=== PATIENT | female | born 1960 | race Caucasian/White ===

== ENCOUNTER → 2021-01-02 09:57 | Outpatient (BNVA) | payer OTHER, SELFPAY | PROVIDERS: Family Provider Internal Medicine; PCP Internal Medicine; Visit Provider Internal Medicine Cardiovascular Disease | DX: E78.5 Hyperlipidemia, unspecified (principal); I25.10 Atherosclerotic heart disease of native coronary artery without angina pectoris | CPT/HCPCS: 80053; 80061; 83721; 85025 ==

== ENCOUNTER → 2021-07-03 10:03 | Outpatient (BNVA) | payer OTHER, SELFPAY | PROVIDERS: Family Provider Internal Medicine; PCP Internal Medicine; Visit Provider Internal Medicine Cardiovascular Disease | DX: E78.5 Hyperlipidemia, unspecified (principal); I25.10 Atherosclerotic heart disease of native coronary artery without angina pectoris; I25.5 Ischemic cardiomyopathy; I10 Essential (primary) hypertension; M06.9 Rheumatoid arthritis, unspecified | CPT/HCPCS: 36415; 80061; 80076 ==

== ENCOUNTER 2023-07-05 12:21 | Inpatient (IN) | payer SELFPAY ==
[2023-07-05] VITALS (9 sets, daily range): BP systolic 91–142; BP diastolic 51–93; PULSE 89–122; RESP 16–19; TEMP 36.4–38.5; O2SAT 93–97; BMI 21.4
--- NOTE | 2023-07-05 12:35 | ECG_ITS ---
[facility] Test Date: 2023-07-05 Pat Name: Rossy Cervantes Department: Room: Gender: Female Bill Peddler: : 1960 Requested By: Damon Davis Order Number: [id number] Rendon MD: Panchito Cespedes M.D. Measurements Intervals [place] Rate: 99 P: 52 MO: 135 QRS: 40 QRSD: 86 T: 69 QT: 349 QTc: 448 Interpretive Statements SINUS RHYTHM Compared to ECG 07/18/2017 04:45:37 Ventricular premature complex(es) no longer present Myocardial infarct finding no longer present Electronically Signed On 07-05-2023 13:19:57 CDT by Panchito Cespedes M.D. [email or web address] Caregreenwood lefl[facility] hospitalPharmAkea Therapeuticsbucyrus community [email or web address].[email or web address]/OM/[id number]
--- NOTE | 2023-07-05 12:35 | XR_ITS ---
WS: [id number] Exam: XR chest 1V portable [id number] Date/Time of Exam: 07/05/2023 12:52 PM Reason For Exam: weakness Comparison 07/15/2017. The lungs are clear and fully expanded. Normal cardiomediastinal silhouette and regional bony element s. IMPRESSION: 1. Negative chest.
--- NOTE | 2023-07-05 12:53 | CT_ITS ---
WS: [id number] CT HEAD TECHNIQUE: Noncontrast CT of the head obtained from the skullbase to the vertex. CLINICAL INFORMATION: weakness COMPARISON: None. DLP: 1007.[address] scans at [facility] use at least one of these dose optimization techniques: automated e xposure control; mA and/or kV adjustment per patient size (includes targeted exams where dose is matc hed to clinical indication); or iterative reconstruction. FINDINGS: No evidence of intracranial hemorrhage or mass effect. Ventricular system and basal cisterns are johnson nt. Minimal small vessel changes with mild parenchymal volume loss. No extra-axial fluid collections. No evidence of mass or mass effect. Small retention cyst RIGHT maxillary sinus. Mucosal thickening RIGHT mastoid tip. . Normal visualized soft tissues. Vascular calcification. IMPRESSION: 1. No evidence of intracranial hemorrhage or mass effect. 2. No acute intracranial findings.
--- NOTE | 2023-07-05 13:00 | ED_ITS ---
HPI - Weakness 2 General: Chief complaint: Weakness Stated complaint: Diarrhea, weakness Time Seen by Provider: 07/05/23 12:35 Source: patient Mode of arrival: ambulatory Limitations: no limitations History of Present Illness: 63-year-old female came up with son narcisa gotti that she has been increasingly weak and having some confusion over the last 3 to 4 days. He states she has not been eating she has had diarrhea. He states that she had called him during the day and thought it was nighttime here she answers most of my questions but does get confused at times and takes a long time to answer some questions. She denies any fever pain does admit she does feel weak and has had diarrhea. Associated symptoms: Reports confusion; Denies chest pain, chills, dysuria, fever(s), headache(s), nausea or vomiting Review of Systems 2 Const: Reports: change in appetite, fatigue and malaise; Denies: fever(s), chills or body aches Eyes: Denies: eye discomfort ENMT: Denies: throat pain or dental pain Card: Denies: chest pain Resp: Denies: dyspnea GI: Reports: diarrhea; Denies: abdominal pain, nausea or vomiting : Denies: dysuria Musc: Denies: neck pain or back pain Skin/Breast: Denies: rash Neuro: Reports: confusion; Denies: headache(s) PFSH ED 2 PFSH: Medical History (Updated 07/05/23 @ 15:10 by Damon Davis MD) HTN (hypertension) Dyslipidemia GERD (gastroesophageal reflux disease) Rheumatoid arthritis Ischemic cardiomyopathy CAD (coronary artery disease) Surgical History S/P tonsillectomy S/P cholecystectomy Social History Smoking and tobacco/nicotine status: current every day tobacco/nicotine user cigarettes Alcohol intake: never Substance/Drug Use: never Physical Exam 2 Const: COMMON NORMALS: no acute distress, patient oriented x3 and healthy appearing HENMT: COMMON NORMALS: normocephalic and atraumatic HEAD & SCALP: n ormocephalic and atraumatic Eye: COMMON NORMALS: Equal, round and reactive pupils present PUPIL: Yes Equal, round and reactive pupils present Neck/C-Spine: COMMON NORMALS: full ROM and supple Chest: COMMONS NORMALS: normal inspection of the chest Resp: COMMON NORMALS: normal respiratory effort, No retractions, No use of accessory muscles and clear to auscultation bilaterally AUSCULTATION: clear to auscultation bilaterally Cardio: COMMON NORMALS: regular rate, regular rhythm and No murmurs present (Cardio) RATE: regular rate RHYTHM: regular rhythm GI: COMMON NORMALS: Normal to inspection, nondistended, normoactive bowel sounds present, Soft to palpation, non-tender and no masses PALPATION: Yes Soft to palpation Extremity: COMMON NORMALS: normal to inspection and full ROM Neuro: COMMON NORMALS: patient oriented x3, moves all extremities and no focal motor deficits Psych: COMMON NORMALS: mental status grossly normal, Normal thought process present and cooperative THOUGHT PROCESS: Normal thought process present Skin: COMMON NORMALS: no rashes or lesions noted and no wounds GENERAL SKIN EXAM: no rashes or lesions noted Course 2 Vital Signs: Vital signs: Vital Signs Temperature 97.7 F 07/05/23 12:27 Pulse Rate 89 07/05/23 15:21 Respiratory Rate 16 07/05/23 15:21 Blood Pressure 117/93 07/05/23 15:21 Pulse Oximetry 93 07/05/23 15:21 Oxygen Delivery Me thod Room Air 07/05/23 15:21 MDM - Weakness Medical Decision Making Presents here with some confusion she also had some vomiting she is hyperglycemic here hyponatremia as well did give her 1 L fluids some insulin she is not in DKA spoke to possible admit for observation. Medical Records I reviewed the patient's medical records. Lab Data I reviewed the patient's lab results. 07/05/23 13:27 07/05/23 13:27 Laboratory Results WBC 3.82 10^3/uL (3.29-11.43) 07/05/23 13: RBC 4.37 10^6/uL (3.85-5.65) 07/05/23 13:27 Hgb 12.80 g/dL (11.27-16.99) 07/05/23 13:27 Hct 37.5 % (36-47) 07/05/23 13:27 MCV 85.8 fl (85-98) 07/05/23 13: MCH 29.3 pg (27-33) 07/05/23 13:27 MCHC 34.1 g/dL (30-55) 07/05/23 13:27 RDW 12.6 % (12.1-15.1) 07/05/23 13:27 Plt Count 92 10^3/cmm (157-399) L 07/05/23 13:27 MPV 11.2 fL (7.4-10.4) H 07/05/23 13:27 Lymph % (Auto) Not Reportable 07/05/23 13:27 [place] % (Auto) Not Reportable 07/05/23 13:27 Lymph # (Auto) Not Reportable 07/05/23 13:27 [place] # (Auto) Not Reportable 07/05/23 13:27 Total Counted 100 (0-100) 07/05/23 13:27 Atypical Lymphs % 0.0 % (0-5) 07/05/23 13:27 Absolute Neutrophils 3.1 10^3/cmm (1.4-6.5) 07/05/23 13:27 Segmented Neutrophils 76 % 07/05/23 13:27 Abs Segm Neuts (Man) 2.9 10/cmm (1.6-7.1) 07/05/23 13: Band Neutrophils 6.0 % 07/05/23 13:27 Abs Band Neuts (Man) 0.2 10^3/cmm (0.0-1.2) 07/05/23 13: Absolute Lymphocytes 0.3 10^3/cmm (1.2-3.4) L 07/05/23 13:27 Lymphocytes (Manual) 8 % 07/05/23 13:27 Monocytes (Manual) 5.0 % 07/05/23 13:27 Absolute Monocytes 0.2 10^3/cmm (0.1-0.6) 07/05/23 13:27 Eosinophils (Manual) 0 % 07/05/23 13: Absolute Eosinophils 0.0 10^3/cmm (0.0-0.7) 07/05/23 13:27 Basophils (Manual) 0.0 % 07/05/23 13: Absolute Basophils 0.0 10^3/cmm (0.0-0.2) 07/05/23 13:27 Metamyelocytes 2.0 % 07/05/23 13:27 Myelocytes 2.0 % 07/05/23 13:27 Platelet Estimate Decreased (Normal) L 07/05/23 13:27 Sodium 125 mmol/L (136-145) L 07/05/23 13:27 Potassium 3.4 mmol/L (3.5-5.1) L 07/05/23 13:27 Chloride 91 mmol/L (98-107) L 07/05/23 13:27 Carbon Dioxide 20 mmol/L (22-29) L 07/05/23 13:27 Anion Gap 17.4 (5-19) 07/05/23 13:27 BUN 21 mg/dL (8-23) 07/05/23 13:27 Creatinine 0.8 mg/dL (0.5-0.9) 07/05/23 13:27 GFR Calculation 72.4 mL/min (90-130) L 07/05/23 13:27 Glucose 478 mg/dL (65-115) H 07/05/23 13:27 POC Glucose 444 mg/dL (70-110) H 07/05/23 14:48 Calculated Osmolality 284 mOsm/kg (285-295) L 07/05/23 13:27 Lactic Acid 1.5 mmol/L (0.5-2.2) 07/05/23 13:27 Calcium 8.1 mg/dL (8.5-10.5) L 07/05/23 13:27 Total Bilirubin 1.1 mg/dL (0.15-1.2) 07/05/23 13:27 AST 256 U/L (0-32) H 07/05/23 13:27 ALT 98 U/L (0-33) H 07/05/23 13:27 Alkaline Phosphatase 361 U/L (35-105) H 07/05/23 13:27 Total Protein 5.8 g/dL (6.6-8.7) L 07/05/23 13:27 Albumin 2.9 g/dL (3.5-5.2) L 07/05/23 13:27 Globulin 2.9 g/dL (1.3-4.6) 07/05/23 13:27 Lipase 82 U/L (13-60) H 07/05/23 13:27 Urine Color Yellow (Yellow) 07/05/23 13:24 Urine Appearance Clear (CLEAR) 07/05/23 13:24 Urine pH 7 (5-7) 07/05/23 13:24 Ur Specific [place] 1.005 (1.005-1.030) 07/05/23 13:24 Urine Protein 1+ (Negative) H 07/05/23 13:24 Urine Glucose (UA) 4+ (Normal) H 07/05/23 13:24 Urine Ketones 1+ (Negative) H 07/05/23 13:24 Urine Blood 3+ (Negative) H 07/05/23 13:24 Urine Nitrate Negative (Negative) 07/05/23 13:24 Urine Bilirubin 1+ (Negative) H 07/05/23 13:24 Urine Urobilinogen 4 mg/dL (Negative) H 07/05/23 13:24 Ur Leukocyte Esterase Negative (Negative) 07/05/23 13:24 Urine RBC 0-4 /hpf (0-2) H 07/05/23 13:24 Urine WBC Rare /hpf (0-5) 07/05/23 13:24 Ur Squamous Epith Cells 10-15 /hpf (0-5) H 07/05/23 13:24 Amorphous Sediment 1+ /hpf 07/05/23 13:24 Urine Bacteria Trace /hpf (NONE) 07/05/23 13:24 Urine Mucus Trace /hpf 07/05/23 13:24 Urine Yeast Trace /hpf 07/05/23 13:24 All radiology interpretation(s) finalized by discharge EKG Data EKG 1: I personally reviewed and interpreted this EKG as follows: EKG interpretation date: 07/05/23 EKG interpretation time: 12:58 Interpretation: nsr hr [address] or t wave abnormalities qrs 86 qtc 405 Discharge Plan Discharge Patient Disposition: Placed in Observation Admit Provider: Chandler Lama Clinical Impression: Hyperglycemia, Altered mental status, Vomiting Coding Level of Care Code ED Service Crew Leader for Chg Char
[2023-07-05] MEDS: sodium chloride 0.9% 1,000 ML 999 ML IV ×2 (13:24→14:13)
[2023-07-05 13:39] LABS: Hematocrit 37.5 % (36-47); Mean Corpuscular HGB Conc 34.1 g/dL (30-55); Mean Corpuscular Hemoglobin 29.3 pg (27-33); Mean Corpuscular Volume 85.8 fl (85-98); Mean Platelet Volume 11.2 fL (7.4-10.4); Platelet Count 92 10^3/cmm (157-399); Red Blood Count 4.37 10^6/uL (3.85-5.65); Red Cell Distribution Width 12.6 % (12.1-15.1); White Blood Count 3.82 10^3/uL (3.29-11.43)
[2023-07-05 13:53] LABS: Lactic Sepsis W/Reflex 1.5 mmol/L (0.5-2.2)
[2023-07-05 13:54] LABS: Alanine Aminotransferase 98 U/L (0-33); Albumin Level 2.9 g/dL (3.5-5.2); Alkaline Phosphatase 361 U/L (35-105); Anion Gap 17.4 (5-19); Aspartate Amino Transferase 256 U/L (0-32); Blood Urea Nitrogen 21 mg/dL (8-23); Calcium 8.1 mg/dL (8.5-10.5); Carbon Dioxide 20 mmol/L (22-29); Chloride 91 mmol/L (98-107); Creatinine Clr Calc Pharmacy 62.0325; Globulin 2.9 g/dL (1.3-4.6); Glomerular Filtration Rate 72.4 mL/min (90-130); Glucose 478 mg/dL (65-115); Lipase 82 U/L (13-60); Osmolality Calculated 284 mOsm/kg (285-295); Potassium 3.4 mmol/L (3.5-5.1); Sodium 125 mmol/L (136-145); Total Bilirubin 1.1 mg/dL (0.15-1.2); Total Protein 5.8 g/dL (6.6-8.7)
[2023-07-05 13:55] LABS: Absolute Segmented Neutrophil 2.9 10/cmm (1.6-7.1); Band Neutrophils Absolute 0.2 10^3/cmm (0.0-1.2); Eosinophils 0 %; Lymphocytes 8 %; Lymphocytes Absolute 0.3 10^3/cmm (1.2-3.4); Monocytes Absolute 0.2 10^3/cmm (0.1-0.6); Segmented Neutrophils 76 %; Slide Review Slide Review Perform; Total Cells Counted 100 (0-100)
[2023-07-05 13:56] LABS: Absolute Neutrophil 3.1 10^3/cmm (1.4-6.5); Platelet Estimate Decreased (Normal)
[2023-07-05 14:14] LABS: Add Urine Microscopic? YES; Bilirubin Urine 1+ (Negative); Blood Urine 3+ (Negative); Glucose Urine UA 4+ (Normal); Ketones Urine 1+ (Negative); Leukocyte Esterase Urine Negative (Negative); Nitrate Urine Negative (Negative); Protein Urine 1+ (Negative); RBC Urine 0-4 /hpf (0-2); Specific Gravity, Urine 1.005 (1.005-1.030); Urine Appearance Clear (CLEAR); Urine Color Yellow (Yellow); Urobilinogen Urine 4 mg/dL (Negative); WBC Urine RARE /hpf (0-5); pH Urine 7 (5-7)
[2023-07-05 14:15] LABS: Add Urine Culture? No; Amorphous Sediment Urine 1+ /hpf; Bacteria Urine TRACE /hpf; Mucus Urine TRACE /hpf
[2023-07-05] MEDS: insulin regular-human 100 units/1 mL 8 UNIT IVP ×2 (14:17→15:05)
[2023-07-05 14:50] LABS: Glucose Point of Care 444 mg/dL (70-110)
--- NOTE | 2023-07-05 15:51 | P.HP_ITS ---
Providers/Chief Complaint 2 Admitting Physician: Chandler Lama DO Primary Care Provider: Joey Hsieh DO Chief Complaint: Diarrhea, weakness History of Present Illness Rossy Cervantes is a 63 year old female w/ PMH of CAD, CA, dyslipidemia, GERD, HTN, who presented to ER with altered mental status. History was obtained through review of ER documentation and patient interview. Patient states that for the last 4 days she has been having diarrhea, and feeling weak. She was unable to eat much due to nausea. She says that she continued to decline over the next few days. She spoke with her son who had encouraged her to come to the ER. Upon presenting, she was noted to be very confused, unable to correctly distinguish the date or season. She initially reported having abdominal pain, but at the time of my exam, she reports that it had resolved. She denies fever, chills, body aches, emesis or urinary symptoms. In the ER, initial workup showed thrombocytopenia with platelets at 92, and lymphocyte count to 0.3. She is unable to relate if this is new for her. Sodium was low at 125, corrected to 131 when glucose taken into account. Her sugars were elevated to 478. She denies previous Dx of diabetes. Potassium slightly low, at 3.4. LFT's were elevated with AST: 256, ALT: 98, Alk Phos: 367. Albumin low at 2.9. Lipase was mildly elevated to 82. CXR was negative for acute cardiopulmonary conditions, and head CT was normal. EKG showed sinus rhythm. She was tachycardic to 110's range, with stable BP. UA showed 3+ blood and high glucose. She did receive fluid bolus x 2 in the ER. She was admitted to [facility] for further workup. Review of Systems 2 General: Reports: 10 or more systems reviewed and unremarkable except in HPI and below Medications/Allergies Home Medications Medication Instructions Recorded Confirmed Last Taken Type clopidogrel 75 mg tablet 75 mg PO DAILY #90 tabs 10/29/22 07/05/23 07/03/23 Rx duloxetine 30 mg capsule,delayed See Rx Instructions .Route .COMPLEX 10/29/22 07/05/23 07/03/23 History release lisinopril 10 mg tablet 10 mg PO DAILY #90 tabs 10/29/22 07/05/23 07/03/23 Rx nitroglycerin 0.4 mg sublingual 0.4 mg sublingual Q5M PRN chest 10/29/22 07/05/23 Unknown Rx tablet pain #25 tabs atorvastatin 80 mg tablet 80 mg PO DAILY #90 tabs 03/08/23 07/05/23 07/03/23 Rx pantoprazole 40 mg tablet,delayed 40 mg PO DAILY #90 tabs 03/16/23 07/05/23 07/03/23 Rx release aspirin 81 mg tablet,delayed 81 mg PO DAILY 07/05/23 07/05/23 07/03/23 History release prednisone 5 mg tablet See Rx Instructions .Route .COMPLEX 07/05/23 07/05/23 07/03/23 History Allergies Allergy/AdvReac Type Severity Reaction Status Date / Time No Known Allergies Allergy Verified 01/02/21 09:07 PFSH Acute 2 PFSH: Medical History (Updated 07/05/23 @ 19:29 by Chandler Lama DO) HTN (hypertension) Dyslipidemia GERD (gastroesophageal reflux disease) Rheumatoid arthritis Ischemic cardiomyopathy CAD (coronary artery disease) Surgical History S/P tonsillectomy S/P cholecystectomy Social History Smoking and tobacco/nicotine status: current every day tobacco/nicotine user cigarettes Alcohol intake: never Substance/Drug Use: never Vitals/I&O/Wt Last Vital Signs Temp 97.7 F 07/05/23 12:27 Pulse 89 07/05/23 15:21 Resp 16 07/05/23 15:21 BP 117/93 07/05/23 15:21 Pulse Ox 93 07/05/23 15:21 O2 Del Method Room Air 07/05/23 15:21 Weight last 48 hrs Weight 120 lb Physical Exam 2 Narrative: General: Cooperative patient in no apparent distress. Oriented to person and place, not time. HEENT: Normocephalic, Atraumatic. External ears normal. Nasal passages patent without drainage. MMM. Heart: Mildly tachycardic. No rubs, gallops or murmurs appreciated. Resp: LCTA. No respiratory distress, no use of accessory muscles. Abd: Soft, non-tender. Non-distended. Bowel sounds present and normal. Extremities: No edema. Skin: No rash or lesions on exposed areas. Neuro: No focal motor or sensory loss. Data 07/05/23 13:27 07/05/23 13:27 A&P Assessment and plan (1) Altered mental status: Qualifiers: Altered mental status type: disorientation Qualified Code(s): R41.0 - Disorientation, unspecified (2) Elevated LFTs: (3) Elevated lipase: (4) Hyperglycemia: (5) Dyslipidemia: (6) Ischemic cardiomyopathy: (7) CAD (coronary artery disease): Qualifiers: Coronary Disease-Associated Artery/Lesion type: [place] artery [place] vs. transplanted heart: [place] heart Associated angina: without angina Qualified Code(s): I25.10 - Atherosclerotic heart disease of [place] coronary artery without angina pectoris (8) GERD (gastroesophageal reflux disease): (9) Acute diarrhea: (10) Tick bite: (11) Hypokalemia: (12) Hyponatremia: Plan Rossy Cervantes is a 63 year old female w/ PMH of CAD, CA, dyslipidemia, GERD, HTN, who presented to ER with altered mental status. Admit to [facility] for evaluation. LFT's, Lipase elevated. Platelets low to 98, which appears new for her. Lymphopenia. Glucose elevated to 478. Na corrected to 131. K+ mildly low to 3.4. Denies previous history of TIIDM, though she did have elevated sugars on previous visits. On further questioning, she endorses recent tick bite, few weeks ago, check tick panel. Will order RUQ US to evaluate given LFT's, Elevated lipase. May have clear fluids for now. Will advance diet as tolerated. Start IVF's. Replace K and recheck in am. Mild hyponatremia when corrected. Treat with IVF's. Check A1c, Lipid panel, TSH, Mag, Phos and repeat CBC, CMP in a.m. Will obtain blood cultures. Toxicology screen negative. Can consider Stool studies if etiology is undetermined. SCD's for VTE PPx due to thrombocytopenia. Hold on GI PPx until RUQ obtained. Accuchecks, SSI to manage hyperglycemia. Will hold plavix and statin for now. May restart if labs improve. Will resume home medications for chronic conditions as status improves. Code Status: Full IVF: NS at 100. DVT PPx: SCD's. GI PPx: None ABx: None Diet: Clear liquids. Discharge plan: TBD. Attestations 2 Medical Necessity Statement*: Admitted for hospitalization due to altered mental status, transaminitis, elevated lipase, acute abdominal pain, and treatment of acute hyponatremia, hypokalemia, hyperglycemia, thrombocytopenia. Hospitalization will likely cross 2 midnights. Coding Level of Care Code Acute Code for Chg Fwd High MDM includes number and complexity of problems actively addressed during encounter, amount and/or complexity of data reviewed/ordered and described risk of complication, morbidity or mortality of management as documented Diagnoses Disorientation R41.0 Altered mental status type: disorientation Elevated LFTs R79.89 Elevated lipase R74.8 Hyperglycemia R73.9 Dyslipidemia E78.5 Ischemic cardiomyopathy I25.5 Coronary artery disease involving [place] coronary artery of [place] heart without angina pectoris I25.10 Coronary Disease-Associated Artery/Lesion type: [place] artery [place] vs. transplanted heart: [place] heart Associated angina: without angina GERD (gastroesophageal reflux disease) K21.9 Acute diarrhea R19.7 Tick bite W57.XXXA Hypokalemia E87.6 Hyponatremia E87.1
[2023-07-05 16:00] LABS: Glucose Point of Care 395 mg/dL (70-110)
[2023-07-05 16:26] LABS: Glucose Point of Care 336 mg/dL (70-110)
[2023-07-05 17:54] LABS: Amphetamines Screen Urine Negative (Negative); Barbiturates Screen Urine Negative (Negative); Benzodiazepines Screen Urine Negative (Negative); Cocaine Screen Urine Negative (Negative); Opiate Screen Urine Negative (Negative); PCP Screen Urine Negative (Negative); THC Screen Urine Negative (Negative)
[2023-07-05] MEDS: pantoprazole 40 mg SDV IVP (17:57)
[2023-07-05] MEDS: sodium chloride 0.9% 1,000 ML 75 ML IV (17:57)
[2023-07-05] MEDS: insulin lispro 100 unit/1 mL SUBCUT ×2 (17:57→20:18)
[2023-07-05 18:01] LABS: Alcohol Level < 10 mg/dL (0-10)
--- NOTE | 2023-07-05 19:07 | US_ITS ---
WS: [id number] Complete ABDOMINAL ULTRASOUND HISTORY: Abd pain, elevated LFT's, Elevated lipase. COMPARISON: 10/23/2010 Liver: 16.5 cm in length. Normal size liver and echogenicity. No bile duct dilatation or mass. Portal Vein: Normal hepatopetal flow with monophasic waveform. Gallbladder: Prior cholecystectomy. CBD: 0.5 cm Pancreas: Normal size and echogenicity. Right kidney: 11.4 cm x 4.7 x 5.1 cm. Cortex:1.4 cm. Normal size and echogenicity. No hydronephrosis or mass. Left kidney: 10.9 cm x 5.1 cm x 5.4 cm. Cortex: 1.3 cm. Normal size and echogenicity. No hydronephrosis or mass. Spleen: 9.9 cm. Normal size and echogenicity. Aorta and IVC: Unremarkable abdominal aorta and IVC. Impression: 1. Status post cholecystectomy. 2. No bile duct dilatation. 3. No hydronephrosis. 4. Negative abdominal ultrasound.
[2023-07-05 19:43] LABS: Estmated Average Glucose 346; Hemoglobin A1C 13.7 % (4.0-6.0)
[2023-07-05 19:52] LABS: Procalcitonin 0.75 ng/mL (0-0.5); Thyroid Stimulating Hormone 2.25 uIU/mL (0.27-4.20)
[2023-07-05 20:03] LABS: C Reactive Protein 84.3 mg/L (0.0-4.9); Chol HDL Ratio 8.12 mg/dL (0.0-4.40); Cholesterol 138 mg/dL (0-200); HDL Cholesterol 17 mg/dL (60-100); Magnesium 1.7 mg/dL (1.7-2.3); Phosphorus 1.9 mg/dL (2.5-4.5); Triglycerides 483 mg/dL (0-150)
[2023-07-05] MEDS: lidocaine 1% 5 ML in potassium chloride premix 100 ML 26.25 ML IV (20:08)
[2023-07-05 20:15] LABS: Glucose Point of Care 254 mg/dL (70-110)
[2023-07-05] MEDS: piperacillin-tazobactam 3.375 GM in sodium chloride 0.9% (plus) 50 ML IV (20:57)
--- NOTE | 2023-07-05 21:29 | PC.NURSE ---
pt observed in room to be calling out from bed, attempting to get out of bed and becoming increasingly agitated. Contacted hospitalist Beni Lockwood and she advised to give 25 mg Seroquel QHS PRN. Order has been put in just waiting on pharmacy to verify at this time.
[2023-07-05] MEDS: quetiapine 25 mg Tablet PO (21:37)
[2023-07-05 21:45] LABS: LDL Cholesterol Direct 44 mg/dL (0-100)
[2023-07-06] VITALS (11 sets, daily range): BP systolic 89–135; BP diastolic 56–85; PULSE 84–118; RESP 15–18; TEMP 36.4–38.6; O2SAT 92–96
[2023-07-06] MEDS: acetaminophen 325 mg Tablet 650 MG PO (03:22)
--- NOTE | 2023-07-06 04:51 | PC.NURSE ---
This nurse was in the middle of giving shift report to charge nurse Kamala Fagan RN when I heard my name being called by Maureen Sinha RN. Upon entering pts room pt was observed to be sitting in the floor near the foot of her bed. There were no visible injuries to pt and pts vital signs were within normal limits. This nurse assisted pt back to bed and called the touring production manager hospitalist Beni Mccullough. Dr Mccullough advised to get 1:1 sitter for pt and that there were no other new orders at this time.
[2023-07-06] MEDS: piperacillin-tazobactam 3.375 GM in sodium chloride 0.9% (plus) 50 ML IV ×3 (05:05→20:01)
[2023-07-06] MEDS: sodium chloride 0.9% 1,000 ML 75 ML IV (05:08)
[2023-07-06 05:21] LABS: Basophils % 0.7 %; Hematocrit 37.8 % (36-47); Lymphocytes # 0.6 10^3/uL (0.8-4.8); Lymphocytes % 20.7 %; Mean Corpuscular HGB Conc 33.6 g/dL (30-55); Mean Corpuscular Hemoglobin 28.7 pg (27-33); Mean Corpuscular Volume 85.5 fl (85-98); Mean Platelet Volume 12.5 fL (7.4-10.4); Monocytes # 0.2 10^3/uL (0.2-0.9); Monocytes % 5.7 %; Neutrophils # 1.93 10^3/uL (1.8-7.7); Neutrophils % 64.2 %; Nucleated Red Blood Cells % 0 %; Platelet Count 57 10^3/cmm (157-399); Red Blood Count 4.42 10^6/uL (3.85-5.65); Red Cell Distribution Width 12.6 % (12.1-15.1)
[2023-07-06 05:40] LABS: Alanine Aminotransferase 92 U/L (0-33); Albumin Level 2.7 g/dL (3.5-5.2); Alkaline Phosphatase 353 U/L (35-105); Anion Gap 16.1 (5-19); Aspartate Amino Transferase 256 U/L (0-32); Blood Urea Nitrogen 14 mg/dL (8-23); Carbon Dioxide 19 mmol/L (22-29); Chloride 95 mmol/L (98-107); Creatinine Clr Calc Pharmacy 74.7818; Globulin 2.7 g/dL (1.3-4.6); Glomerular Filtration Rate 84.5 mL/min (90-130); Glucose 142 mg/dL (65-115); Osmolality Calculated 267 mOsm/kg (285-295); Potassium 3.1 mmol/L (3.5-5.1); Sodium 127 mmol/L (136-145); Total Bilirubin 1.4 mg/dL (0.15-1.2); Total Protein 5.4 g/dL (6.6-8.7)
[2023-07-06 05:46] LABS: Slide Review Slide Review Perform
[2023-07-06 06:24] LABS: Glucose Point of Care 136 mg/dL (70-110)
[2023-07-06 11:10] LABS: Glucose Point of Care 315 mg/dL (70-110)
[2023-07-06] MEDS: potassium chloride ER 20 mEq Tablet 80 MEQ PO (11:44)
[2023-07-06] MEDS: ibuprofen 200 mg Tablet 400 MG PO (11:44)
[2023-07-06] MEDS: sodium chloride 0.9% 1,000 ML 999 ML IV (11:45)
[2023-07-06] MEDS: insulin lispro 100 unit/1 mL SUBCUT ×2 (11:45→21:03)
[2023-07-06] MEDS: sodium chlor 0.9% + KCl 40 mEq 40 MEQ/1,000 ML BAG 75 MEQ IV (13:31)
[2023-07-06] MEDS: insulin glargine 100 units/1 mL 15 UNIT SUBCUT (13:32)
[2023-07-06 13:38] LABS: Iron 43 ug/dL (37-145); Percent Saturation 23.2 % (20-50); Total Iron Binding Capacity 185 mcg/dl; Unsaturated Iron Binding 142 ug/dL (112-347)
[2023-07-06 13:54] LABS: Vitamin B12 1506 pg/mL (232-1245)
[2023-07-06 14:10] LABS: Cortisol Random 22.25 ug/dL (2.47-19.5)
[2023-07-06 15:24] LABS: Adenovirus Not Detected (NOT DETECT); Chlamydia Pneumoniae Not Detected (NOT DETECT); Coronavirus 229E,HKU1,NL63,OC4 Not Detected (NOT DETECT); Human Metapneumovirus Not Detected (NOT DETECT); Human Rhinovirus/Enterovirus Not Detected (NOT DETECT); Influenza A Not Detected (NOT DETECT); Influenza A H1 Not Detected (NOT DETECT); Influenza A H1-2009 Not Detected (NOT DETECT); Influenza A H3 Not Detected (NOT DETECT); Influenza B Not Detected (NOT DETECT); Mycoplasma Pneumoniae Not Detected (NOT DETECT); Parainfluenza Virus Type 1 Not Detected (NOT DETECT); Parainfluenza Virus Type 2 Not Detected (NOT DETECT); Parainfluenza Virus Type 3 Not Detected (NOT DETECT); Parainfluenza Virus Type 4 Not Detected (NOT DETECT); Respiratory Syncytial Virus A Not Detected (NOT DETECT); Respiratory Syncytial Virus B Not Detected (NOT DETECT); SARS-COV-2 Not Detected (NOT DETECT)
[2023-07-06 17:02] LABS: Glucose Point of Care 68 mg/dL (70-110)
--- NOTE | 2023-07-06 17:08 | PM.PN ---
Subjective Subjective: Hospital course, labs appreciated. Seen with multiple family was at bedside. Patient is more awake and alert as per nursing staff. Patient on examination is awake, denies any nausea, vomiting, headache. Awake but slow to respond. Able to have full conversations. Vitals/I&O/Wt Last Vital Signs Temp 97.7 F 07/06/23 15:15 Pulse 92 07/06/23 15:15 Resp 16 07/06/23 15:15 BP 91/58 07/06/23 15:15 Pulse Ox 93 07/06/23 15:15 O2 Del Method Room Air 07/06/23 15:15 07/06/23 07/06/23 07/06/23 06:59 14:59 22:59 Intake Total 993.75 / 3233.75 1828.75 / 1828.75 Balance 993.75 / 3233.75 1828.75 / 1828.75 Weight last 48 hrs Weight 61.915 kg Weight 56.699 kg Weight 54.431 kg Physical Exam Narrative: General: Cooperative patient in no apparent distress. AOx3 HEENT: Normocephalic, Atraumatic. External ears normal. Nasal passages patent without drainage. MMM. Heart: Regular S1-S2. No rubs, gallops or murmurs appreciated. Resp: LCTA. No respiratory distress, no use of accessory muscles. Abd: Soft, non-tender. Non-distended. Bowel sounds present and normal. Extremities: No edema. Skin: No rash or lesions on exposed areas. Neuro: No focal motor or sensory loss. Data 07/06/23 04:17 07/06/23 04:17 Micro: Microbiology 07/05/23 20:12 Blood Culture - Preliminary Blood SPECIMEN COLLECTED 07/05/23 20:10 Blood Culture - Preliminary Blood SPECIMEN COLLECTED A&P Assessment and plan (1) Altered mental status: Resolved. Still slow to respond but able to complete conversation. AOx3. Most likely in setting of dehydration from acute diarrhea on admission along with hyponatremia and uncontrolled diabetes mellitus. Monitor regularly. Frequent reorientation. Hold off on sitter for now. Restart home dose of Cymbalta. Qualifiers: Altered mental status type: disorientation Qualified Code(s): R41.0 - Disorientation, unspecified (2) Hyponatremia: Sodium level up to 127. 125 on admission. Most likely in setting of dehydration. Continue with normal saline at 75 cc/h. 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 Patient has been on steroids for RA for many months on and off as per the family members with multiple doses. A1c 13.7. Blood sugars uncontrolled. Had Lantus 15 units daily. Switch to insulin sliding scale before meals and at bedtime at low-dose protocol. Monitor for hypoglycemia. (4) Hypokalemia: Replace with 40 mg oral. Add 40 mg to IV fluids. Repeat BMP in evening. (5) Acute diarrhea: No more diarrhea since admission. Continue with IV Zosyn. Associated with lymphopenia. Also has thrombocytopenia. Check respiratory viral panel to rule out viral gastroenteropathy. (6) Hypotension: Bolus 500 cc normal saline. Goal blood pressure less than 140/90 mmHg with mean over 65. Cannot rule out in setting of adrenal insufficiency from chronic steroids recently. Check cortisol level. (7) Elevated LFTs: Appreciate abdominal ultrasound. History of cholecystectomy. Alcohol level and toxic screen negative on admission. Stable transaminitis for now. Alkaline phosphatase elevated. CRP elevated on admission. Mild hyperbilirubinemia. Check hepatitis panel, HIV, GGT. Associated with mild elevated lipase on admission. If continues to get worsen will plan for MRCP. (8) Ischemic cardiomyopathy: Past medical history. Echocardiogram from 2018 showed EF of 30%. Currently euvolemic. Repeat echocardiogram. (9) CAD (coronary artery disease): Restart home dose of aspirin. Holding off on statins. Qualifiers: Coronary Disease-Associated Artery/Lesion type: [place] artery [place] vs. transplanted heart: [place] heart Associated angina: without angina Qualified Code(s): I25.10 - Atherosclerotic heart disease of [place] coronary artery without angina pectoris (10) GERD (gastroesophageal reflux disease): (11) Tick bite: (12) Elevated lipase: (13) Steroid-induced diabetes mellitus: (14) Dyslipidemia: Plan Code Status: Full DVT PPx: SCD's. Thrombocytopenia GI PPx: Protonix Diet: Advance to Carb consistent diet Attestations Medical Necessity Statement*: Requires further hospitalization for management of dehydration leading to hyponatremia, hypokalemia, acute diarrhea,Uncontrolled type 2 diabetes mellitus, hypotension in a patient with chronic steroids for rheumatoid arthritis, ischemic cardiomyopathy, transaminitis Diagnoses Disorientation R41.0 Altered mental status type: disorientation Hyponatremia E87.1 Uncontrolled type 2 diabetes mellitus Hypokalemia E87.6 Acute diarrhea R19.7 Hypotension I95.9 Elevated LFTs R79.89 Ischemic cardiomyopathy I25.5 Coronary artery disease involving [place] coronary artery of [place] heart without angina pectoris I25.10 Coronary Disease-Associated Artery/Lesion type: [place] artery [place] vs. transplanted heart: [place] heart Associated angina: without angina GERD (gastroesophageal reflux disease) K21.9 Tick bite W57.XXXA Elevated lipase R74.8 Steroid-induced diabetes mellitus E09.9; T38.0X5A Dyslipidemia E78.5
[2023-07-06 17:16] LABS: Glucose Point of Care 93 mg/dL (70-110)
--- NOTE | 2023-07-06 17:22 | USCV_ITS ---
Rossy Cervantes Age: 63 Gender: F : 1960 Exam Date: 07/06/2023 21:20 Ordering Phys: John Silva MD Technologist: LIZA [place] [facility] [place] order says Ischemic cardiomyopathy BP: 91 / 58 HR: 84 Rhythm: Sinus Technical Quality: Adequate MEASUREMENTS (Male / Female) Normal Values 2D ECHO LV Diastolic Diameter PLAX 4.5 cm 4.2 - 5.9 / 3.9 - 5.3 cm IVS Diastolic Thickness 1.1 cm 0.6 - 1.0 / 0.6 - 0.9 cm IVS Systolic Thickness 1.8 cm LVPW Diastolic Thickness 1.4 cm 0.6 - 1.0 / 0.6 - 0.9 cm LVPW Systolic Thickness 2.4 cm LVOT Diameter 1.7 cm LV Ejection Fraction 2D Teich 65.8 % LV Ejection Fraction MOD 2C 61.4 % LV Ejection Fraction 2C AL 63.5 % LA Diameter 3.3 cm LA Sys Volume AL 46.6 cm cubed LA Sys Volume Index AL 27.8 cm cubed/m squared Aorta at Sinotubular Diameter 2.6 cm IVC Diameter 1.9 cm M-MODE LA Ao Ratio MM 1.2 AV Cusp Separation MM 1.7 cm DOPPLER AV Peak Velocity 105.0 cm/s LVOT Peak Velocity 72.0 cm/s AV Area Cont Eq vti 1.3 cm squared AV Area Cont Eq pk 1.5 cm squared MV Peak Velocity 108.0 cm/s MV Area PHT 3.2 cm squared Mitral E to A Ratio 0.7 TV Peak Velocity 237.5 cm/s TR Peak Velocity 239.0 cm/s TR Peak Gradient 22.8 mmHg TV Peak E Velocity 34.0 cm/s Right Atrial Pressure 3.0 mmHg Pulmonary Artery Systolic Pressu 25.8 mmHg PV Peak Velocity 76.0 cm/s FINDINGS Left Ventricle Left ventricle is normal in size. LV systolic function is mildly reduced with EF of 45 to 50%. Mild global hypokinesis. Grade 1 diastolic dysfunction. Right Ventricle Normal size and function. Right Atrium Normal in size Left Atrium Normal in size Mitral Valve Moderate mitral annular calcification. Mild mitral regurgitation. Aortic Valve Aortic valve is thickened. No significant stenosis or regurgitation. Tricuspid Valve Mild tricuspid regurgitation. Pulmonary artery systolic pressure is normal. Pulmonic Valve Not well visualized Pericardium Normal Aorta Normal in size IVC Appears to be normal CONCLUSIONS LV systolic function is mildly reduced with EF of 45 to 50%. Grade 1 diastolic dysfunction Mild mitral regurgitation Mild tricuspid regurgitation Compared to prior echocardiogram from 2018, no significant changes are seen Panchito Cespedes MD (Electronically Signed) Final Date: 07 July 2023 09:59 S
[2023-07-06] MEDS: predniSONE 20 mg Tablet PO (17:24)
[2023-07-06] MEDS: duloxetine 60 mg Capsule PO (17:24)
[2023-07-06 20:28] LABS: Glucose Point of Care 194 mg/dL (70-110)
[2023-07-07] VITALS (11 sets, daily range): BP systolic 96–120; BP diastolic 60–75; PULSE 85–120; RESP 16–19; TEMP 36.4–37.6; O2SAT 89–99
[2023-07-07] MEDS: sodium chlor 0.9% + KCl 40 mEq 40 MEQ/1,000 ML BAG 75 MEQ IV (02:21)
[2023-07-07] MEDS: piperacillin-tazobactam 3.375 GM in sodium chloride 0.9% (plus) 50 ML IV ×3 (05:03→21:50)
[2023-07-07] MEDS: insulin glargine 100 units/1 mL 15 UNIT SUBCUT (05:04)
[2023-07-07] MEDS: duloxetine 30 mg Capsule PO (05:04)
[2023-07-07 05:16] LABS: Basophils % 0.7 %; Hematocrit 34.3 % (36-47); Lymphocytes % 21.2 %; Mean Corpuscular HGB Conc 32.9 g/dL (30-55); Mean Corpuscular Volume 87.9 fl (85-98); Monocytes # 0.2 10^3/uL (0.2-0.9); Monocytes % 3.9 %; Neutrophils % 69.8 %; Nucleated Red Blood Cells % 0 %; Platelet Count 32 10^3/cmm (157-399); Red Cell Distribution Width 13.2 % (12.1-15.1); White Blood Count 4.58 10^3/uL (3.29-11.43)
[2023-07-07 05:37] LABS: Magnesium 1.6 mg/dL (1.7-2.3)
[2023-07-07 05:38] LABS: Alanine Aminotransferase 89 U/L (0-33); Albumin Level 2.4 g/dL (3.5-5.2); Alkaline Phosphatase 364 U/L (35-105); Anion Gap 13.8 (5-19); Aspartate Amino Transferase 272 U/L (0-32); Blood Urea Nitrogen 13 mg/dL (8-23); Calcium 7.5 mg/dL (8.5-10.5); Carbon Dioxide 16 mmol/L (22-29); Chloride 107 mmol/L (98-107); Creatinine Clr Calc Pharmacy 104.6945; Globulin 2.5 g/dL (1.3-4.6); Glomerular Filtration Rate 124.6 mL/min (90-130); Glucose 194 mg/dL (65-115); Osmolality Calculated 279 mOsm/kg (285-295); Potassium 4.8 mmol/L (3.5-5.1); Sodium 132 mmol/L (136-145); Total Bilirubin 1.6 mg/dL (0.15-1.2); Total Protein 4.9 g/dL (6.6-8.7)
[2023-07-07 05:42] LABS: Slide Review Slide Review Perform
[2023-07-07 05:52] LABS: HIV 1 & 2 Antibody Non-Reactive (Non-Reactiv); HIV 1 & 2 Antigen Non-Reactive (Non-Reactiv)
[2023-07-07 05:54] LABS: Folate Level 15.1 ng/mL (4.8-37.3)
[2023-07-07 05:57] LABS: Hepatitis A Antibody IgM Non-Reactive (Nonreactive); Hepatitis B Core AB, Total Non-Reactive (Nonreactive); Hepatitis B Surface AB < 3.5 (11.5-1000); Hepatitis B Surface Antigen Non-Reactive (Nonreactive); Hepatitis C Virus Antibody Non-Reactive (Nonreactive)
[2023-07-07 06:32] LABS: Glucose Point of Care 199 mg/dL (70-110)
[2023-07-07] MEDS: pantoprazole DR 40 mg Tablet PO (07:57)
[2023-07-07] MEDS: aspirin 81 mg EC Tablet PO (07:58)
[2023-07-07] MEDS: insulin lispro 100 unit/1 mL SUBCUT ×3 (07:58→17:58)
--- NOTE | 2023-07-07 11:09 | CTR_ITS ---
PROCEDURE INFORMATION: Exam: CT Abdomen And Pelvis Without Contrast Exam date and time: 07/07/2023 11:48 AM Age: 63 years old Clinical indication: Abdominal pain; Additional info: Diarrhea, transamminitis TECHNIQUE: Imaging protocol: Computed tomography of the abdomen and pelvis without contrast. Radiation optimization: All CT scans at this facility use at least one of these dose optimization techniques: automated exposure control; mA and/or kV adjustment per patient size (includes targeted exams where dose is matched to clinical indication); or iterative reconstruction. COMPARISON: US abdomen complete* [id number] 07/05/2023 7:44 PM RADIATION DOSE METRICS: Total DLP (mGy-cm): 543.83 FINDINGS: Pleural spaces: Small bilateral pleural effusions. Coronary arteries: Coronary artery calcifications. Liver: Normal. No mass. Gallbladder and bile ducts: Previous cholecystectomy. Pancreas: Normal. No ductal dilation. Spleen: Normal. No splenomegaly. Adrenal glands: Normal. No mass. Kidneys and ureters: Normal. No hydronephrosis. Stomach and bowel: Stomach is markedly distended. No obstructive mass. Appendix: No evidence of appendicitis. Intraperitoneal space: Unremarkable. No free air. No significant fluid collection. Vasculature: Unremarkable. No abdominal aortic aneurysm. Lymph nodes: Unremarkable. No enlarged lymph nodes. Urinary bladder: Unremarkable as visualized. Reproductive: Unremarkable as visualized. Bones/joints: Lower lumbar degenerative changes. Mild stenosis at L4-L5 with moderate left-sided neural foraminal narrowing. Soft tissues: Left-sided inguinal hernia containing nondilated small bowel. CT/CT abdomen pelvis wo con [id number] IMPRESSION: 1. Stomach is markedly distended. No obstructive mass. 2. Left-sided inguinal hernia containing nondilated small bowel. 3. Small bilateral pleural effusions.
[2023-07-07 11:18] LABS: Glucose Point of Care 185 mg/dL (70-110)
[2023-07-07] MEDS: magnesium sulfate premix 1 GM/100 ML PIGGYBACK IV (12:02)
[2023-07-07] MEDS: HYDROcodone-acetaminophen 5-325 mg Tablet 1 TAB PO (12:07)
--- NOTE | 2023-07-07 14:11 | P.PN_ITS ---
Subjective 2 Subjective: No acute events overnight. Seen with son at bedside. Patient worked with physical therapy. Today patient is complaining of pain in her legs and her back. States pain is chronic but has not happened for short while. Denies any nausea, ting, headache. Appetite remains poor. States he started having diarrhea again today. Denies any abdominal pain. Tachycardic today on manager monitoring. Normal sinus rhythm low. Denies any chest pain.Patient has remained afebrile in last 24 hours. Last fever at 3 AM on . Vitals/I&O/Wt Last Vital Signs Temp 98 F 07/07/23 12:00 Pulse 114 H 07/07/23 12:00 Resp 16 07/07/23 12:00 BP 120/75 07/07/23 12:00 Pulse Ox 97 07/07/23 12:00 O2 Del Method Room Air 07/07/23 03:55 07/06/23 07/07/23 07/07/23 22:59 06:59 14:59 Intake Total 311.25 / 2140.00 1012.5 / 3152.50 290 / 290 Balance 311.25 / 2140.00 1012.5 / 3152.50 290 / 290 Weight last 48 hrs Weight 63.701 kg Weight 61.915 kg Weight 56.699 kg Physical Exam 2 Narrative: General: Cooperative patient in no apparent distress. AOx3, anxious HEENT: Normocephalic, Atraumatic. External ears normal. Nasal passages patent without drainage. MMM. Heart: Regular S1-S2. No rubs, gallops or murmurs appreciated. Resp: LCTA. No respiratory distress, no use of accessory muscles. Abd: Soft, non-tender. Non-distended. Bowel sounds present and normal. Extremities: No edema. Skin: No rash or lesions on exposed areas. Neuro: No focal motor or sensory loss. Data 07/07/23 04:24 07/07/23 04:24 Micro: Microbiology 07/05/23 20:12 Blood Culture - Preliminary Blood NEGATIVE TO DATE 07/05/23 20:10 Blood Culture - Preliminary Blood NEGATIVE TO DATE A&P Assessment and plan (1) Altered mental status: Resolved. Still slow to respond but able to complete conversation. AOx3. Most likely in setting of dehydration from acute diarrhea on admission along with hyponatremia and uncontrolled diabetes mellitus. Monitor regularly. Frequent reorientation. Hold off on sitter for now. Alcohol level urine drug screen on admission negative. Continue with home dose of Cymbalta. Restart Seroquel 25 mg nightly. Xanax 0.5 as needed daily. Qualifiers: Altered mental status type: disorientation Qualified Code(s): R41.0 - Disorientation, unspecified (2) Thrombocytopenia: Down to 32,000, no episode of bleeding. No worsening. Which could be dilutional as well. No past history of thrombocytopenia. Alcohol level negative on admission, HIV and hepatitis panel negative. Patient does have episodes of diarrhea. Hemoglobin slightly trending down down to 11.3 today from 12.8 on admission. Etiology unknown. Possibilities of HUS versus TMA versus ITP. Medical reconciliation done for drug-induced. Patient has not been on heparin since admission. Check LDH, Jay, peripheral smear, DIC panel, Delgado 13, haptoglobin (3) Acute diarrhea: Diarrhea restarted today. Cannot rule out secondary to gastroparesis from uncontrolled diabetes mellitus. Check stool studies. Continue with IV hydration. Continue with IV Zosyn. Associated with lymphopenia. Respiratory viral panel negative. (4) Hyponatremia: Resolving. Up to 132 today. 125 on admission. Most likely in setting of dehydration. Continue with normal saline at 75 cc/h. 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 Patient has been on steroids for RA for many months on and off as per the family members with multiple doses. A1c 13.7. Blood sugars better controlled today. Continue with Lantus 15 units daily, insulin sliding scale ACHS low protocol. Patient will be discharged on insulin. Will dose insulin as per requirements prior to discharge. (6) Hypokalemia: Resolved today. Monitor daily. (7) Hypotension: Resolved. Patient did receive a fluid bolus yesterday along with 20 mg of oral prednisone. Cortisol levels appreciated. If patient has hypotension again we will start her on low-dose prednisone daily. (8) Elevated LFTs: Appreciate abdominal ultrasound. History of cholecystectomy. Alcohol level and toxic screen negative on admission. Continues to have transaminitis along with elevated alkaline phosphatase and bilirubin. Bilirubin mildly worsening. Check CT abdomen pelvis. If remains negative we will plan for possible MRCP though ducts look nondilated on ultrasound. Hepatitis panel, HIV negative. (9) Ischemic cardiomyopathy: Past medical history. Echocardiogram from 2018 showed EF of 30%. Currently euvolemic. Echocardiogram at this time shows EF 45 to 50% with grade 1 diastolic function, mild MR, mild TR. (10) CAD (coronary artery disease): Restart home dose of aspirin. Holding off on statins. Qualifiers: Coronary Disease-Associated Artery/Lesion type: [place] artery [place] vs. 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 Thrombocytopenia GI PPx: Protonix Diet: Advance to Carb consistent diet Attestations 2 Medical Necessity Statement*: Requires further hospitalization for management of diarrhea, severe thrombocytopenia, uncontrolled diabetes mellitus, transaminitis while infectious causes were ruled out Diagnoses Disorientation R41.0 Altered mental status type: disorientation Thrombocytopenia D69.6 Acute diarrhea R19.7 Hyponatremia E87.1 Uncontrolled type 2 diabetes mellitus Hypokalemia E87.6 Hypotension I95.9 Elevated LFTs R79.89 Ischemic cardiomyopathy I25.5 Coronary artery disease involving [place] coronary artery of [place] heart without angina pectoris I25.10 Coronary Disease-Associated Artery/Lesion type: [place] artery [place] vs. transplanted heart: [place] heart Associated angina: without angina GERD (gastroesophageal reflux disease) K21.9 Tick bite [id number].XXXA Elevated lipase R74.8 Steroid-induced diabetes mellitus E09.9; T38.0X5A Dyslipidemia E78.5
[2023-07-07 14:19] LABS: Lyme AB Screen <0.90 index
[2023-07-07] MEDS: ALPRAZolam 0.5 mg Tablet PO (14:30)
[2023-07-07] MEDS: sodium chlor 0.9% + KCl 40 mEq 40 MEQ/1,000 ML BAG 100 MEQ IV ×2 (15:02→23:49)
[2023-07-07 16:38] LABS: Glucose Point of Care 162 mg/dL (70-110)
[2023-07-07] MEDS: duloxetine 60 mg Capsule PO (17:58)
--- NOTE | 2023-07-07 19:33 | PC.NURSE ---
Notified Dr. Silva of patient being tacy today. HR was steady at 120 and BP was 120/74. No new orders given.
[2023-07-07 20:20] LABS: Reflex FDPQ test REFLEX FDP QUEST TES
[2023-07-07 20:43] LABS: Glucose Point of Care 129 mg/dL (70-110)
[2023-07-07 20:46] LABS: INR 0.96 (0.8-1.2)
[2023-07-07 20:47] LABS: Partial Thromboplastin Time 24.9 SECONDS (23.9-36.7)
[2023-07-07 20:49] LABS: Fibrinogen 188 mg/dL (174-498)
[2023-07-07] MEDS: naloxone 0.4 mg/ml SDV 0.100000000000000006 MG IVP (21:00)
--- NOTE | 2023-07-07 21:00 | CTR_ITS ---
PROCEDURE INFORMATION: Exam: CT Head Without Contrast Exam date and time: 07/07/2023 9:12 PM Age: 63 years old Clinical indication: Altered mental status/memory loss; Additional info: Change in mental status TECHNIQUE: Imaging protocol: Computed tomography of the head without contrast. Radiation optimization: All CT scans at this facility use at least one of these dose optimization techniques: automated exposure control; mA and/or kV adjustment per patient size (includes targeted exams where dose is matched to clinical indication); or iterative reconstruction. COMPARISON: CT head wo con* [id number] 07/05/2023 1:48 PM RADIATION DOSE METRICS: Total DLP (mGy-cm): 1553.08 FINDINGS: Brain: Normal. No hemorrhage. Unremarkable white matter. No mass effect. Cerebral ventricles: No ventriculomegaly. Paranasal sinuses: There is a mucous retention cyst in the right maxillary sinus. Mastoid air cells: Visualized mastoid air cells are well aerated. Bones/joints: Unremarkable. No acute fracture. Soft tissues: Unremarkable. CT/CT head wo con* [id number] IMPRESSION: No large territorial infarct or intracranial bleed.
[2023-07-07 21:01] LABS: D Dimer >= 20.00 ug/mLFEU (0-0.59)
[2023-07-07 21:24] LABS: Lactate Dehydrogenase 771 U/L (135-214)
[2023-07-07 22:12] LABS: Ammonia 37 umol/L (11-51)
--- NOTE | 2023-07-07 23:13 | CTR_ITS ---
PROCEDURE INFORMATION: Exam: CTA Chest With Contrast Exam date and time: 07/08/2023 2:52 AM Age: 63 years old Clinical indication: Other: New hypoxia; Additional info: Evaluate for pe, new hypoxia, d dimer > 20, evaluate for pe TECHNIQUE: Imaging protocol: Computed tomographic angiography of the chest with contrast. Exam focused on the arteries. 3D rendering (Not supervised by radiologist): MIP and/or 3D reconstructed images were created by the technologist. Radiation optimization: All CT scans at this facility use at least one of these dose optimization techniques: automated exposure control; mA and/or kV adjustment per patient size (includes targeted exams where dose is matched to clinical indication); or iterative reconstruction. Contrast material: OMNI 350; Contrast volume: 57 ml; Contrast route: INTRAVENOUS (IV); COMPARISON: CR XR chest 1V portable [id number] 07/05/2023 12:59 PM RADIATION DOSE METRICS: Total DLP (mGy-cm): 338.1 FINDINGS: Pulmonary arteries: Normal. No pulmonary emboli. Aorta: Unremarkable. No aortic aneurysm. No aortic dissection. Lungs: There is a 4 mm left upper lobe subpleural nodule on series 6, image 158. No focal airspace consolidation. Pleural spaces: Small bilateral pleural effusions. Heart: Unremarkable. No cardiomegaly. No pericardial effusion. Lymph nodes: Unremarkable. No enlarged lymph nodes. Bones/joints: Unremarkable. No acute fracture. Soft tissues: Unremarkable. CT/CT angio chest PE protcl [id number] IMPRESSION: 1. No pulmonary emboli or other acute cardiopulmonary pathology identified. 2. There is a 4 mm left upper lobe subpleural nodule. For patients at low risk (minimal or absent history of smoking and of other known risk factors), no routine follow-up is indicated. For patients at high risk (history of smoking or of other known risk factors), consider optional CT Chest at 12 months. (Reference: Kristina) REFERENCES: Kristina Tinoco et al. Guidelines for Management of Incidental Pulmonary Nodules Detected on CT Images: From the Fleischner Society 2017. Radiology. 2017;284(1):228-243.
[2023-07-07] MEDS: doxycycline 100 MG in sodium chloride 0.9% (plus) 100 ML IV (23:46)
[2023-07-08] VITALS (9 sets, daily range): BP systolic 88–100; BP diastolic 55–66; PULSE 80–116; RESP 16–18; TEMP 36.4–37.3; O2SAT 95–98
[2023-07-08] MEDS: iohexol 350 mg/mL 500 mL Btl (per mL) IV (03:00)
[2023-07-08] MEDS: piperacillin-tazobactam 3.375 GM in sodium chloride 0.9% (plus) 50 ML IV ×3 (04:01→20:02)
[2023-07-08] MEDS: insulin glargine 100 units/1 mL 15 UNIT SUBCUT (05:38)
[2023-07-08] MEDS: duloxetine 30 mg Capsule PO (05:38)
[2023-07-08 05:43] LABS: Hematocrit 38.1 % (36-47); Mean Corpuscular HGB Conc 33.3 g/dL (30-55); Mean Corpuscular Hemoglobin 29.2 pg (27-33); Mean Corpuscular Volume 87.6 fl (85-98); Platelet Count 31 10^3/cmm (157-399); Red Blood Count 4.35 10^6/uL (3.85-5.65); Red Cell Distribution Width 13.7 % (12.1-15.1); White Blood Count 6.11 10^3/uL (3.29-11.43)
[2023-07-08 06:05] LABS: Alanine Aminotransferase 89 U/L (0-33); Albumin Level 2.4 g/dL (3.5-5.2); Alkaline Phosphatase 437 U/L (35-105); Anion Gap 12.1 (5-19); Aspartate Amino Transferase 276 U/L (0-32); Blood Urea Nitrogen 10 mg/dL (8-23); Calcium 7.5 mg/dL (8.5-10.5); Carbon Dioxide 19 mmol/L (22-29); Chloride 102 mmol/L (98-107); Creatinine Clr Calc Pharmacy 90.8191; Globulin 2.3 g/dL (1.3-4.6); Glucose 83 mg/dL (65-115); Osmolality Calculated 266 mOsm/kg (285-295); Potassium 4.1 mmol/L (3.5-5.1); Sodium 129 mmol/L (136-145); Total Bilirubin 2.6 mg/dL (0.15-1.2); Total Protein 4.7 g/dL (6.6-8.7)
[2023-07-08 06:10] LABS: Magnesium 1.5 mg/dL (1.7-2.3)
[2023-07-08 06:31] LABS: Glucose Point of Care 93 mg/dL (70-110)
[2023-07-08 06:40] LABS: Slide Review Slide Review Perform
[2023-07-08 06:42] LABS: Absolute Neutrophil 4.6 10^3/cmm (1.4-6.5); Absolute Segmented Neutrophil 4.2 10/cmm (1.6-7.1); Band Neutrophils Absolute 0.4 10^3/cmm (0.0-1.2); Eosinophils 0 %; Lymphocytes 17 %; Lymphocytes Absolute 1.2 10^3/cmm (1.2-3.4); Monocytes Absolute 0.2 10^3/cmm (0.1-0.6); Platelet Estimate Decreased (Normal); Segmented Neutrophils 69 %; Total Cells Counted 100 (0-100)
[2023-07-08 06:45] LABS: LAB Peripheral Smear Sent for Review
[2023-07-08 07:43] LABS: ABG PCO2 28.3 mmHg (35-45); ABG PH Result 7.39 (7.35-7.45); Arterial Blood Gas Hematocrit 37.7 % (37-47); Base Excess ABG -6.4 mmol/L (-2.0-2.0); Blood Gas Allen Test Pos; Blood Gas Sample Site Radial, right; Blood Gas Sample Type Arterial; HCO3 ABG 17.3 mmol/L (22-26); Oxygen Device NC; PO2 ABG 70.1 mmHg (80.0-100.0); PO2 FiO2 Ratio Arterial Blood 0
[2023-07-08] MEDS: aspirin 81 mg EC Tablet PO (09:01)
[2023-07-08] MEDS: pantoprazole DR 40 mg Tablet PO (09:01)
[2023-07-08 11:14] LABS: Glucose Point of Care 93 mg/dL (70-110)
[2023-07-08] MEDS: doxycycline 100 MG in sodium chloride 0.9% (plus) 100 ML IV ×2 (12:01→23:29)
[2023-07-08] MEDS: magnesium sulfate premix 1 GM/100 ML PIGGYBACK IV (12:01)
[2023-07-08] MEDS: sodium chlor 0.9% + KCl 40 mEq 40 MEQ/1,000 ML BAG 100 MEQ IV ×2 (12:02→20:04)
[2023-07-08] MEDS: predniSONE 20 mg Tablet 40 MG PO (14:48)
--- NOTE | 2023-07-08 15:34 | P.PN_ITS ---
Subjective 2 Subjective: Overnight patient had episode of confusion. Today morning when first seen pa seen sleeping. Wakes up to verbal stimulus. On waking up able to complete conversation but falling asleep again. Seen with tient was family at bedside. Later in the day patient was seen awake having lunch and watching TV. Blood pressures stable, patient is tachycardic. States of pain. Vitals/I&O/Wt Last Vital Signs Temp 97.6 F 07/08/23 12:00 Pulse 112 H 07/08/23 12:00 Resp 18 07/08/23 12:00 BP 98/62 07/08/23 12:00 Pulse Ox 96 07/08/23 12:00 O2 Del Method Nasal Cannula 07/08/23 04:00 O2 Flow Rate 1 07/08/23 08:00 07/08/23 07/08/23 07/08/23 06:59 14:59 22:59 Intake Total 1028.333 / 2659.583 1380 / 1380 Balance 1028.333 / 2659.583 1380 / 1380 Weight last 48 hrs Weight 67.812 kg Weight 63.701 kg Physical Exam 2 Narrative: General: Cooperative patient in no apparent distress. AOx3, anxious HEENT: Normocephalic, Atraumatic. External ears normal. Nasal passages patent without drainage. MMM. Heart: Regular S1-S2. No rubs, gallops or murmurs appreciated. Resp: LCTA. No respiratory distress, no use of accessory muscles. Abd: Soft, non-tender. Non-distended. Bowel sounds present and normal. Extremities: No edema. Skin: No rash or lesions on exposed areas. Neuro: No focal motor or sensory loss. Data 07/08/23 05:26 07/08/23 05:26 Micro: Microbiology 07/08/23 05:26 Cryptococcal Antigen (Serum) - Final Blood A&P Assessment and plan (1) Altered mental status: Had resolved but drowsy again overnight on 07/06. Most likely in the setting of dose of Cymbalta and Xanax which she received yesterday. CT head negative, ammonia levels normal Change Cymbalta to 30 mg 1 time a day until home dose can be confirmed. No further Xanax or opiates. Hold off on any further [place]. Qualifiers: Altered mental status type: disorientation Qualified Code(s): R41.0 - Disorientation, unspecified (2) Thrombocytopenia: Still low but stable. No bleeding. High haptoglobin, DIC panel normal except elevated D-dimer of more than 20, LDH high at 771, normal folate and vitamin B12 level, negative HIV and hepatitis screen, respiratory viral panel negative. Peripheral smear pending, Delgado 13 pending. Jay test negative. Etiology unknown. Possibilities of HUS versus TMA versus ITP. Medical reconciliation done for drug-induced. Patient has not been on heparin since admission. Check LDH, Jay, peripheral smear, DIC panel, Delgado 13, haptoglobin (3) Hypotension: Blood pressures on and off low. Appreciate cortisol level. Patient's energy level, mentation and blood pressure is better with prednisone. 40 mg of oral prednisone one-time today followed by 5 mg oral daily from tomorrow. (4) Elevated LFTs: Appreciate abdominal ultrasound. History of cholecystectomy. Alcohol level and toxic screen negative on admission. Continues to have transaminitis along with elevated alkaline phosphatase and bilirubin. Bilirubin mildly worsening. Appreciate CT abdomen pelvis. Hepatitis panel, HIV negative. Cannot rule out in setting of take bone infection. History of tick bites. Patient does have thrombocytopenia and transaminitis along with low-grade fevers on and off. Await tick panel. Check Ehrlichia antibodies. Start on doxycycline 100 mg every 12 hourly. (5) Acute diarrhea: Diarrhea restarted today. Cannot rule out secondary to gastroparesis from uncontrolled diabetes mellitus. Check stool studies. Continue with IV hydration. Continue with IV Zosyn. Associated with lymphopenia. Respiratory viral panel negative. (6) Hyponatremia: Resolving. Continue with normal saline at 75 cc/h. 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 Patient has been on steroids for RA for many months on and off as per the family members with multiple doses. A1c 13.7. Blood sugars better controlled today. Continue with Lantus 15 units daily, insulin sliding scale ACHS low protocol. Patient will be discharged on insulin. Will dose insulin as per requirements prior to discharge. (8) Hypokalemia: Resolved today. Monitor daily. (9) Ischemic cardiomyopathy: Past medical history. Echocardiogram from 2018 showed EF of 30%. Currently euvolemic. Echocardiogram at this time shows EF 45 to 50% with grade 1 diastolic function, mild MR, mild TR. (10) CAD (coronary artery disease): Restart home dose of aspirin. Holding off on statins. Qualifiers: Coronary Disease-Associated Artery/Lesion type: [place] artery [place] vs. 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 Will call patient's pharmacy to confirm medication otherwise have requested son to get medication box from home. Code Status: Full DVT PPx: SCD's. Thrombocytopenia GI PPx: Protonix Diet: Advance to Carb consistent diet Discharge plan: If patient's platelet count and transaminitis remained stable with patient's mentation improving will plan to discharge back home. Case management alerted for the possibility of home health. Appreciate PT evaluation. Attestations 2 Medical Necessity Statement*: Requires further hospitalization for management of metabolic encephalopathy patient with history of transaminitis, severe thrombocytopenia while tickborne infection is ruled out, diarrhea in a patient with baseline rheumatoid arthritis Diagnoses Disorientation R41.0 Altered mental status type: disorientation Thrombocytopenia D69.6 Hypotension I95.9 Elevated LFTs R79.89 Acute diarrhea R19.7 Hyponatremia E87.1 Uncontrolled type 2 diabetes mellitus Hypokalemia E87.6 Ischemic cardiomyopathy I25.5 Coronary artery disease involving [place] coronary artery of [place] heart without angina pectoris I25.10 Coronary Disease-Associated Artery/Lesion type: [place] artery [place] vs. transplanted heart: [place] heart Associated angina: without angina GERD (gastroesophageal reflux disease) K21.9 Tick bite W57.XXXA Elevated lipase R74.8 Steroid-induced diabetes mellitus E09.9; T38.0X5A Dyslipidemia E78.5
[2023-07-08 17:00] LABS: Glucose Point of Care 97 mg/dL (70-110)
[2023-07-08 20:30] LABS: Glucose Point of Care 153 mg/dL (70-110)
[2023-07-08] MEDS: insulin lispro 100 unit/1 mL SUBCUT (21:04)
[2023-07-09 03:36] VITALS: BP 89/56; PULSE 93; RESP 18; TEMP 37.1; O2SAT 97
[2023-07-09 05:15] VITALS: BMI 24.4
[2023-07-09] MEDS: insulin glargine 100 units/1 mL 15 UNIT SUBCUT (05:22)
[2023-07-09] MEDS: piperacillin-tazobactam 3.375 GM in sodium chloride 0.9% (plus) 50 ML IV (05:22)
[2023-07-09] MEDS: duloxetine 30 mg Capsule PO (05:22)
[2023-07-09 05:51] VITALS: PULSE 83
[2023-07-09 06:55] VITALS: BP 90/58; PULSE 80; RESP 20; TEMP 36.3; O2SAT 96
[2023-07-09 06:58] LABS: Basophils # 0.1 10^3/uL (0.0-0.1); Basophils % 0.7 %; Hematocrit 35.1 % (36-47); Lymphocytes # 4.9 10^3/uL (0.8-4.8); Lymphocytes % 49.1 %; Mean Corpuscular HGB Conc 33.3 g/dL (30-55); Mean Corpuscular Hemoglobin 28.8 pg (27-33); Mean Corpuscular Volume 86.5 fl (85-98); Monocytes # 1.3 10^3/uL (0.2-0.9); Monocytes % 12.9 %; Neutrophils # 3.62 10^3/uL (1.8-7.7); Nucleated Red Blood Cells % 0 %; Platelet Count 51 10^3/cmm (157-399); Red Blood Count 4.06 10^6/uL (3.85-5.65); Red Cell Distribution Width 13.9 % (12.1-15.1); White Blood Count 10.05 10^3/uL (3.29-11.43)
[2023-07-09 07:00] VITALS: BP 84/54
[2023-07-09 07:01] LABS: Slide Review Slide Review Perform
[2023-07-09 07:05] VITALS: BP 90/58
[2023-07-09 07:17] LABS: Alanine Aminotransferase 80 U/L (0-33); Albumin Level 2.3 g/dL (3.5-5.2); Alkaline Phosphatase 458 U/L (35-105); Aspartate Amino Transferase 223 U/L (0-32); Blood Urea Nitrogen 12 mg/dL (8-23); Calcium 7.3 mg/dL (8.5-10.5); Carbon Dioxide 19 mmol/L (22-29); Chloride 106 mmol/L (98-107); Creatinine Clr Calc Pharmacy 106.6326; Globulin 2.3 g/dL (1.3-4.6); Glomerular Filtration Rate 124.6 mL/min (90-130); Glucose 166 mg/dL (65-115); Osmolality Calculated 280 mOsm/kg (285-295); Sodium 133 mmol/L (136-145); Total Bilirubin 2.1 mg/dL (0.15-1.2); Total Protein 4.6 g/dL (6.6-8.7)
[2023-07-09 07:20] LABS: Magnesium 1.8 mg/dL (1.7-2.3)
[2023-07-09 07:30] LABS: Glucose Point of Care 143 mg/dL (70-110)
[2023-07-09] MEDS: insulin lispro 100 unit/1 mL SUBCUT ×2 (08:39→11:25)
[2023-07-09] MEDS: predniSONE 5 mg Tablet PO (08:40)
[2023-07-09] MEDS: pantoprazole DR 40 mg Tablet PO (08:40)
[2023-07-09] MEDS: aspirin 81 mg EC Tablet PO (08:40)
[2023-07-09] MEDS: sodium chlor 0.9% + KCl 40 mEq 40 MEQ/1,000 ML BAG 100 MEQ IV (10:07)
[2023-07-09 10:53] LABS: Glucose Point of Care 144 mg/dL (70-110)
[2023-07-09 11:10] VITALS: BP 94/58; PULSE 84; RESP 18; TEMP 36.4; O2SAT 93
[2023-07-09] MEDS: doxycycline 100 MG in sodium chloride 0.9% (plus) 100 ML IV (11:29)
--- NOTE | 2023-07-09 11:44 | P.DS_ITS ---
Discharge Providers Date of Admission: 07/05/23 19:36 Date of Discharge: July 09, 2023 Attending Provider at Admission: Chandler Lama DO Attending Provider at Discharge: John Silva MD Primary Care Provider: Joey Hsieh DO Diagnoses at Discharge Discharge Diagnosis (1) Altered mental status: Status: Acute Qualifiers: Altered mental status type: disorientation Qualified Code(s): R41.0 - Disorientation, unspecified (2) Thrombocytopenia: Status: Acute (3) Hypotension: Status: Acute (4) Elevated LFTs: Status: Acute (5) Acute diarrhea: Status: Acute (6) Hyponatremia: Status: Acute (7) Uncontrolled type 2 diabetes mellitus: Status: Acute (8) Hypokalemia: Status: Acute (9) Ischemic cardiomyopathy: Status: Acute (10) CAD (coronary artery disease): Status: Acute Qualifiers: Associated angina: without angina Coronary Disease-Associated Artery/Lesion type: wrangell artery [place] vs. 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 History was obtained through review of ER documentation and patient interview. Patient states that for the last 4 days she has been having diarrhea, and feeling weak. She was unable to eat much due to nausea. She says that she continued to decline over the next few days. She spoke with her son who had encouraged her to come to the ER. Upon presenting, she was noted to be very confused, unable to correctly distinguish the date or season. She initially reported having abdominal pain, but at the time of my exam, she reports that it had resolved. She denies fever, chills, body aches, emesis or urinary symptoms. In the ER, initial workup showed thrombocytopenia with platelets at 92, and lymphocyte count to 0.3. She is unable to relate if this is new for her. Sodium was low at 125, corrected to 131 when glucose taken into account. Her sugars were elevated to 478. She denies previous Dx of diabetes. Potassium slightly low, at 3.4. LFT's were elevated with AST: 256, ALT: 98, Alk Phos: 367. Albumin low at 2.9. Lipase was mildly elevated to 82. CXR was negative for acute cardiopulmonary conditions, and head CT was normal. EKG showed sinus rhythm. She was tachycardic to 110's range, with stable BP. UA showed 3+ blood and high glucose. She did receive fluid bolus x 2 in the ER. She was admitted to [facility] for further workup. Hospital Course Hospital Course Patient was admitted to the hospital further evaluation and management of altered mental status in setting of dehydration and diarrhea. On admission she was also found to have transaminitis along with thrombocytopenia. Multiple workup was done for blood work abnormality. Her mentation improved with IV hydration. She was found to have uncontrolled type 2 diabetes mellitus with A1c of more than 13. As per the patient and her family at bedside she has rheumatoid arthritis for which she is not on biologicals anymore since she lost her insurance and has been on steroids on and off for over a year with multiple doses of steroid taper prescribed to her by her primary care provider. Multiple workup was done for transaminitis which ruled out gallbladder pathology, hepatitis and HIV. She did not have any concerns for acute cholecy stitis or cholangitis. Biliary duct during multiple images was not dilated. Her transaminitis during the care of hospitalization remained stable. Patient was also found to have lymphopenia along with thrombocytopenia on admission. Lymphopenia improved and thrombocytopenia has remained stable to improving. Workup done for thrombocytopenia came back negative for Jay study, showed elevated LDH. It is believed her symptoms along with transaminitis and thrombocytopenia could be in the setting of tick bite. Tick panel has been sent and has been elevated. Patient has shown clinical improvement since starting of doxycycline. She has been discharged in hemodynamically stable condition on oral doxycycline with advised to follow-up with a primary care provider within next 2 weeks. She should have a repeat CBC and CMP in 2 weeks. For her uncontrolled diabetes mellitus patient was prescribed Humalog and Lantus which she could not afford hence she is already been discharged on Lantus 15 un its daily with advised to maintain blood sugar diary with checking her blood sugars 3 times a day including fasting, prelunch and predinner and follow-up with a primary care provider on further appointments for adjustment of insulin dose. Discharge planning and discussed counseling of the detail with patient and patient's son at bedside. All the questions were answered. Physical Exam Narrative: General: Cooperative patient in no apparent distress. AOx3, anxious HEENT: Normocephalic, Atraumatic. External ears normal. Nasal passages patent without drainage. MMM. Heart: Regular S1-S2. No rubs, gallops or murmurs appreciated. Resp: LCTA. No respiratory distress, no use of accessory muscles. Abd: Soft, non-tender. Non-distended. Bowel sounds present and normal. Extremities: No edema. Skin: No rash or lesions on exposed areas. Neuro: No focal motor or sensory loss. Discharge Data Studies Completed and Pending Completed Studies During Hospitalization Category Date Time Status CT abdomen pelvis wo con [id number] Routine Cat Scan 07/07/23 11:[address] head wo con* [id number] Routine Cat Scan 07/07/23 21:[address] head wo con* [id number] Stat Cat Scan 07/05/23 12:53 Completed CTA chest [CT angio chest PE protcl [id number]] Routine Cat Scan 07/07/23 23:13 Completed CXRP [XR chest 1V portable [id number]] Stat Exams 07/05/23 12:35 Completed CV. echo complete* [id number] Routine Ultrasound 07/06/23 17:22 Completed US abdomen complete* [id number] Urgent Ultrasound 07/05/23 19:07 Completed Pending at discharge Category Date Time Status ADAMTS 13 Activity With Reflex Routine Lab 07/07/23 19:54 Received Blood Culture Stat Lab 07/05/23 20:12 Results C.Diff PCR (Lab) Routine Lab 07/07/23 11:01 Ordered Ehrlichia Chaffeensis PCR Routine Lab 07/08/23 12:13 Received Fibrinogen Degradation Product Routine Lab 07/07/23 20:20 Received Immunochemical Fecal OCB Routine Lab 07/07/23 11:01 Ordered Lactoferrin Routine Lab 07/07/23 11:01 Ordered OVA and Parasites, Conc and PE Routine Lab 07/07/23 11:01 Ordered Salmonella / Shigella / Campy Routine Lab 07/07/23 11:01 Ordered Tick Panel Routine Lab 07/05/23 13:27 Results MR MRCP [id number] Urgent MRI 07/09/23 08:17 Ordered Radiology Impressions Abdomen/Pelvis CT 07/07/23 11:09 IMPRESSION: 1. Stomach is markedly distended. No obstructive mass. 2. Left-sided inguinal hernia containing nondilated small bowel. 3. Small bilateral pleural effusions. Head CT 07/07/23 21:00 IMPRESSION: No large territorial infarct or intracranial bleed. Chest CTA 07/07/23 23:13 IMPRESSION: 1. No pulmonary emboli or other acute cardiopulmonary pathology identified. 2. There is a 4 mm left upper lobe subpleural nodule. For patients at low risk (minimal or absent history of smoking and of other known risk factors), no routine follow-up is indicated. For patients at high risk (history of smoking or of other known risk factors), consider optional CT Chest at 12 months. (Reference: Kristina) REFERENCES: Kristina Tinoco, et al. Guidelines for Management of Incidental Pulmonary Nodules Detected on CT Images: From the Fleischner Society 2017. Radiology. 2017;284(1):228-243. Echocardiogram: CONCLUSIONS LV systolic function is mildly reduced with EF of 45 to 50%. Grade 1 diastolic dysfunction Mild mitral regurgitation Mild tricuspid regurgitation Compared to prior echocardiogram from 2018, no significant changes are seen Panchito Cespedes MD (Electronically Signed) Final Date: 07 July 2023 Laboratory Results WBC 10.05 10^3/uL (3.29-11.43) 07/09/23 06:38 RBC 4.06 10^6/uL (3.85-5.65) 07/09/23 06:38 Hgb 11.70 g/dL (11.27-16.99) 07/09/23 06:38 Hct 35.1 % (36-47) L 07/09/23 06:38 MCV 86.5 fl (85-98) 07/09/23 06:38 MCH 28.8 pg (27-33) 07/09/23 06:38 MCHC 33.3 g/dL (30-55) 07/09/23 06:38 RDW 13.9 % (12.1-15.1) 07/09/23 06:38 Plt Count 51 10^3/cmm (157-399) L D 07/09/23 06:38 MPV Not Reportable 07/09/23 06:38 Neut % (Auto) 36.0 % 07/09/23 06:38 Lymph % (Auto) 49.1 % 07/09/23 06:38 [place] % (Auto) 12.9 % 07/09/23 06:38 Eos % (Auto) 0.0 % 07/09/23 06:38 Baso % (Auto) 0.7 % 07/09/23 06:38 Neut # (Auto) 3.62 10^3/uL (1.8-7.7) 07/09/23 06:38 Lymph # (Auto) 4.9 10^3/uL (0.8-4.8) H 07/09/23 06:38 [place] # (Auto) 1.3 10^3/uL (0.2-0.9) H 07/09/23 06:38 Eos # (Auto) 0.0 10^3/uL (0.0-0.8) 07/09/23 06:38 Baso # (Auto) 0.1 10^3/uL (0.0-0.1) 07/09/23 06:38 Nucleated RBC % (auto) 0 % 07/09/23 06:38 Total Counted 100 (0-100) 07/08/23 05:26 Atypical Lymphs % 2.0 % (0-5) 07/08/23 05:26 Absolute Neutrophils 4.6 10^3/cmm (1.4-6.5) 07/08/23 05:26 Segmented Neutrophils 69 % 07/08/23 05:26 Abs Segm Neuts (Man) 4.2 10/cmm (1.6-7.1) 07/08/23 05:26 Band Neutrophils 7.0 % 07/08/23 05:26 Abs Band Neuts (Man) 0.4 10^3/cmm (0.0-1.2) 07/08/23 05:26 Absolute Lymphocytes 1.2 10^3/cmm (1.2-3.4) 07/08/23 05:26 Lymphocytes (Manual) 17 % 07/08/23 05:26 Monocytes (Manual) 3.0 % 07/08/23 05:26 Absolute Monocytes 0.2 10^3/cmm (0.1-0.6) 07/08/23 05:26 Eosinophils (Manual) 0 % 07/08/23 05:26 Absolute Eosinophils 0.0 10^3/cmm (0.0-0.7) 07/08/23 05:26 Basophils (Manual) 0.0 % 07/08/23 05:26 Absolute Basophils 0.0 10^3/cmm (0.0-0.2) 07/08/23 05:26 Metamyelocytes 1.0 % 07/08/23 05:26 Myelocytes 1.0 % 07/08/23 05:26 Nucleated RBCs # 0.0 /100WBC 07/09/23 06:38 Platelet Estimate Decreased (Normal) L 07/08/23 05:26 Peripher Smr Path Cons Sent for review 07/08/23 05:26 Haptoglobin 209.0 mg/L (30-200) H 07/07/23 19:54 PT 13.10 SECONDS (12.1-14.9) 07/07/23 19:54 INR 0.96 (0.8-1.2) 07/07/23 19:54 APTT 24.9 SECONDS (23.9-36.7) 07/07/23 19:54 Fibrinogen 188 mg/dL (174-498) 07/07/23 19:54 D-Dimer >= 20.00 ug/mLFEU (0-0.59) H 07/07/23 19:54 Specimen Type Arterial 07/07/23 21:30 Sample Site Radial, right 07/07/23 21:30 ABG pH 7.39 (7.35-7.45) 07/07/23 21:30 ABG pCO2 28.3 mmHg (35-45) L 07/07/23 21:30 ABG pO2 70.1 mmHg (80.0-100.0) L 07/07/23 21:30 ABG PO2/FiO2 Ratio 0 07/07/23 21:30 ABG HCO3 17.3 mmol/L (22-26) L 07/07/23 21:30 ABG Base Excess -6.4 mmol/L (-2.0-2.0) L 07/07/23 21:30 Julio Test Pos 07/07/23 21:30 Hematocrit 37.7 % (37-47) 07/07/23 21:30 O2 Delivery Device Nc 07/07/23 21:30 O2 Liters/Min 1.0 % 07/07/23 21:30 FiO2 24.0 % 07/07/23 21:30 Jboss Developer ID Josefa 07/07/23 21:30 Sodium 133 mmol/L (136-145) L 07/09/23 06:38 Potassium 5.0 mmol/L (3.5-5.1) 07/09/23 06:38 Chloride 106 mmol/L (98-107) 07/09/23 06:38 Carbon Dioxide 19 mmol/L (22-29) L 07/09/23 06:38 Anion Gap 13.0 (5-19) 07/09/23 06:38 BUN 12 mg/dL (8-23) 07/09/23 06:38 Creatinine 0.5 mg/dL (0.5-0.9) 07/09/23 06:38 GFR Calculation 124.6 mL/min (90-130) 07/09/23 06:38 Glucose 166 mg/dL (65-115) H 07/09/23 06:38 POC Glucose 144 mg/dL (70-110) H 07/09/23 10:43 Estimat Average Glucose 346 07/05/23 13:27 Hemoglobin A1c 13.7 % (4.0-6.0) H 07/05/23 13:27 Calculated Osmolality 280 mOsm/kg (285-295) L 07/09/23 06:38 Lactic Acid 1.5 mmol/L (0.5-2.2) 07/05/23 13:27 Calcium 7.3 mg/dL (8.5-10.5) L 07/09/23 06:38 Phosphorus 1.9 mg/dL (2.5-4.5) L 07/05/23 13:29 Magnesium 1.8 mg/dL (1.7-2.3) 07/09/23 06:38 Iron 43 ug/dL (37-145) 07/06/23 04:17 TIBC 185 mcg/dl 07/06/23 04:17 % Saturation 23.2 % (20-50) 07/06/23 04:17 Unsat Iron Binding 142 ug/dL (112-347) 07/06/23 04:17 Total Bilirubin 2.1 mg/dL (0.15-1.2) H 07/09/23 06:38 AST 223 U/L (0-32) H 07/09/23 06:38 ALT 80 U/L (0-33) H 07/09/23 06:38 Alkaline Phosphatase 458 U/L (35-105) H 07/09/23 06:38 Ammonia 37 umol/L (11-51) 07/07/23 21:39 Lactate Dehydrogenase 771 U/L (135-214) H 07/07/23 19:54 C-Reactive Protein 84.3 mg/L (0.0-4.9) H 07/05/23 13:29 Total Protein 4.6 g/dL (6.6-8.7) L 07/09/23 06:38 Albumin 2.3 g/dL (3.5-5.2) L 07/09/23 06:38 Globulin 2.3 g/dL (1.3-4.6) 07/09/23 06:38 Triglycerides 483 mg/dL (0-150) H 07/05/23 13:29 Cholesterol 138 mg/dL (0-200) 07/05/23 13:29 LDL Cholesterol Direct 44 mg/dL (0-100) 07/05/23 13:29 LDL Cholesterol, Calc Not Reportable 07/05/23 13:29 HDL Cholesterol 17 mg/dL (60-100) L 07/05/23 13:29 LDL/HDL Ratio Not Reportable 07/05/23 13:29 Cholesterol/HDL Ratio 8.12 mg/dL (0.0-4.40) H 07/05/23 13:29 Lipase 82 U/L (13-60) H 07/05/23 13:27 Vitamin B12 1506 pg/mL (232-1245) H 07/06/23 04:17 Folate 15.1 ng/mL (4.8-37.3) 07/07/23 04:24 Procalcitonin 0.75 ng/mL (0-0.5) H 07/05/23 13:29 TSH 2.25 uIU/mL (0.27-4.20) 07/05/23 13:29 Random Cortisol 22.25 ug/dL (2.47-19.5) H 07/06/23 04:17 Urine Color Yellow (Yellow) 07/05/23 13:24 Urine Appearance Clear (CLEAR) 04/16/24 13:24 Urine pH 7 (5-7) 07/05/23 13:24 Ur Specific [place] 1.005 (1.005-1.030) 07/05/23 13:24 Urine Protein 1+ (Negative) H 07/05/23 13:24 Urine Glucose (UA) 4+ (Normal) H 07/05/23 13:24 Urine Ketones 1+ (Negative) H 07/05/23 13:24 Urine Blood 3+ (Negative) H 07/05/23 13:24 Urine Nitrate Negative (Negative) 07/05/23 13:24 Urine Bilirubin 1+ (Negative) H 07/05/23 13:24 Urine Urobilinogen 4 mg/dL (Negative) H 07/05/23 13:24 Ur Leukocyte Esterase Negative (Negative) 07/05/23 13:24 Urine RBC 0-4 /hpf (0-2) H 07/05/23 13:24 Urine WBC Rare /hpf (0-5) 07/05/23 13:24 Ur Squamous Epith Cells 10-15 /hpf (0-5) H 07/05/23 13:24 Amorphous Sediment 1+ /hpf 07/05/23 13:24 Urine Bacteria Trace /hpf (NONE) 07/05/23 13:24 Urine Mucus Trace /hpf 07/05/23 13:24 Urine Yeast Trace /hpf 07/05/23 13:24 Urine Opiates Screen Negative ng/mL (Negative) 07/05/23 13:24 Ur Barbiturates Screen Negative ng/mL (Negative) 07/05/23 13:24 Ur Phencyclidine Scrn Negative ng/mL (Negative) 07/05/23 13:24 Ur Amphetamines Screen Negative ng/mL (Negative) 07/05/23 13:24 U Benzodiazepines Scrn Negative ng/mL (Negative) 07/05/23 13:24 Urine Cocaine Screen Negative ng/mL (Negative) 07/05/23 13:24 U Marijuana (THC) Screen Negative ng/mL (Negative) 07/05/23 13:24 Ethyl Alcohol < 10 mg/dL (0-10) 07/05/23 15:55 Adenovirus (PCR) Not detected (NOT DETECT) 07/06/23 13:34 Lyme Ab (Western Blot) <0.90 index 07/05/23 13:27 C. pneumoniae DNA (PCR) Not detected (NOT DETECT) 07/06/23 13:34 Coronavirus 229E (PCR) Not detected (NOT DETECT) 07/06/23 13:34 Hepatitis A IgM Ab Non-reactive (Nonreactive) 07/07/23 04:24 Hep Bs Antigen Non-reactive (Nonreactive) 07/07/23 04:24 Hep Bs Antibody < 3.5 (11.5-1000) L 07/07/23 04:24 Hep B Core Total Ab Non-reactive (Nonreactive) 07/07/23 04:24 Hepatitis C Antibody Non-reactive (Nonreactive) 07/07/23 04:24 HIV 1&2 Ab & HIV 1 Ag Non-reactive (Non-Reactiv) 07/07/23 04:24 HIV 1&2 Antibody Non-reactive (Non-Reactiv) 07/07/23 04:24 Human Metapneumovir PCR Not detected (NOT DETECT) 07/06/23 13:34 Influenza A (H1) PCR Not detected (NOT DETECT) 07/06/23 13:34 Influ A (H1/09) PCR Not detected (NOT DETECT) 07/06/23 13:34 Influenza A (H3) PCR Not detected (NOT DETECT) 07/06/23 13:34 Influenza Type A (PCR) Not detected (NOT DETECT) 07/06/23 13:34 Influenza Type B (PCR) Not detected (NOT DETECT) 07/06/23 13:34 M. pneumoniae (PCR) Not detected (NOT DETECT) 07/06/23 13:34 Parainfluenza 1 (PCR) Not detected (NOT DETECT) 07/06/23 13:34 Parainfluenza 2 (PCR) Not detected (NOT DETECT) 07/06/23 13:34 Parainfluenza 3 (PCR) Not detected (NOT DETECT) 07/06/23 13:34 Parainfluenza 4 (PCR) Not detected (NOT DETECT) 07/06/23 13:34 RSV Type A (PCR) Not detected (NOT DETECT) 07/06/23 13:34 RSV Type B (PCR) Not detected (NOT DETECT) 07/06/23 13:34 Entero/Rhino (PCR) Not detected (NOT DETECT) 07/06/23 13:34 SARS-CoV-2 (PCR) Not detected (NOT DETECT) 07/06/23 13:34 JOHANNA, Poly Interpret Negative 07/07/23 04:24 Vitals Last Vital Signs Temp 97.4 F L 07/09/23 06:55 Pulse 80 07/09/23 06:55 Resp 20 H 07/09/23 06:55 BP 90/58 07/09/23 07:05 Pulse Ox 96 07/09/23 06:55 O2 Del Method Nasal Cannula 07/09/23 06:55 O2 Flow Rate 1 07/09/23 06:55 Discharge Plan Discharge Patient Disposition: Home Condition: Stable Prescriptions: New prednisone 5 mg Tablet 5 mg PO DAILY Qty: 30 0RF duloxetine 30 mg Capsule,Delayed Release(Dr/Ec) 30 mg PO QPM Qty: 30 0RF (DME) lancets Misc See Rx Instructions .ROUTE .MEDSUPPLY Qty: 100 0RF Rx Instructions: As directed ([facility] [place]) Blood Glucose Monitoring Kit See Rx Instructions .ROUTE .MEDSUPPLY Qty: 1 0RF Rx Instructions: As directed (DME) BD Ultra-Fine Micro Pen Needle 32 gauge x 1/4 needle See Rx Instructions .ROUTE .MEDSUPPLY Qty: 50 0RF Rx Instructions: As directed doxycycline hyclate 100 mg capsule 100 mg PO BID 10 Days Qty: 20 0RF Basaglar KwikPen U-100 Insulin 100 unit/mL (3 mL) insulin pen 13 unit SUBCUT DAILY Qty: 15 0RF Continued clopidogrel 75 mg tablet 75 mg PO DAILY Qty: 90 3RF nitroglycerin 0.4 mg tablet, sublingual 0.4 mg SUBLINGUAL Q5M PRN (Reason: chest pain) Qty: 25 3RF Rx Instructions: do not exceed 3 doses per episode pantoprazole 40 mg tablet,delayed release (DR/EC) 40 mg PO DAILY Qty: 90 3RF aspirin 81 mg Tablet,Delayed Release (Dr/Ec) 81 mg PO DAILY Held atorvastatin 80 mg tablet 80 mg PO DAILY Qty: 90 3RF Hold Instructions: Resume on 07/30/23. Discontinued duloxetine 30 mg capsule,delayed release(DR/EC) See Rx Instructions .ROUTE .COMPLEX Rx Instructions: TAKE 1 TABLET IN THE AM AND 2 TABLETS IN THE PM lisinopril 10 mg tablet 10 mg PO DAILY Qty: 90 3RF prednisone 5 mg tablet See Rx Instructions .ROUTE .COMPLEX Rx Instructions: TAKE BY MOUTH 4 TABS DAILY FOR 7 DAYS, THEN 3 TABS DAILY FOR 7 DAYS, THEN 2 TABS DAILY FOR 7 DAYS, THEN 1 TAB DAILY FOR 7 DAYS Discharge Orders: Discharge Order (Routine); Ordered 07/09/23 Ordered By: John Silva Other Ambulatory Orders: DME: Walker (Order) Location: None Selected Ordered By: John Silva Referrals: Rafy Kirby MD [Physician] - 07/14/23 8:00 am Discharge Diet: Cardiac and Diabetic Discharge Activity: Resume usual activity and Increase activity as tolerated Patient Instructions: Type 2 Diabetes, Prednisone (By mouth) (predniSONE Intensol, Prednicot, Deltasone, Amaya), Duloxetine (By mouth) (Cymbalta, Irenka, Drizalma Sprinkle), Insulin Glargine (By injection) (Lantus, Lantus SoloStar, Toujeo, Semglee), Pulmonary Embolism (DC), Hyponatremia (DC), Hypokalemia (DC), Hypotension (DC), Thrombocytopenia (DC), Opioid Safety Activity Restrictions/Additional Instructions: If Fingerstick Blood Glucose, then Insulin Units; If 141-180 mg/dl, then 2 units/SQ; If 181-220 mg/dl, then 4 units/SQ; If 221-260 mg/dl, then 6 units/SQ; If 261-300 mg/dl, then 8 units/SQ; If 301-350 mg/dl, then 10 units/SQ; If 351- 400 mg/dl, then 12 units/SQ; If greater than 400 mg/dl, then 14 units/SQ Lantus with the long-term acting insulin which is supposed to take 1 time a day. Take 12 units daily. Humalog is the short acting dose which you need to take as per the sliding scale provided to you. Please check your blood sugars 3 times a day, which should be fasting, prelunch and predinner. Please maintain a blood sugar diary and follow-up with a primary care provider on set appointment for further adjustment of insulin's. Target blood glucose level fasting is less than 120 and prelunch and predinner would be less than 140. You should have a repeat CMP and CBC in 2 weeks. Discharge Attestations Time Spent in Discharge Care*: greater than 30 min Specific Discharge Activities: educating patient, educating and/or supporting family/caregiver, discussing with pcp/other providers, discussing with casework manager/social workers/dc planners, documenting/other paperwork and evaluating patient/reviewing data Status at Discharge: Cognitive status at discharge: mildly impaired cognition , Behavioral status at discharge: cooperative , Functional status at discharge: uses cane/walker , Overall status at discharge: patient is progressing back to baseline Quality Metrics Clinical Quality Measures [ No reported AMI, CVA or VTE this stay] Coding Level of Care Code 15219 Total time (in minutes) for Discharge: 60 Diagnoses Disorientation R41.0 Altered mental status type: disorientation Thrombocytopenia D69.6 Hypotension I95.9 Elevated LFTs R79.89 Acute diarrhea R19.7 Hyponatremia E87.1 Uncontrolled type 2 diabetes mellitus Hypokalemia E87.6 Ischemic cardiomyopathy I25.5 Coronary artery disease involving wrangell coronary artery of wrangell heart without angina pectoris I25.10 Associated angina: without angina Coronary Disease-Associated Artery/Lesion type: wrangell artery [place] vs. transplanted heart: wrangell heart GERD (gastroesophageal reflux disease) K21.9 Tick bite W57.XXXA Elevated lipase R74.8 Steroid-induced diabetes mellitus E09.9; T38.0X5A Dyslipidemia E78.5
--- NOTE | 2023-07-09 11:54 | PC.NURSE ---
D/C pending ride home. Patients son, Troy will be here to pick pt up in roughly 2 hours.
--- NOTE | 2023-07-09 12:03 | PC.NURSE ---
Patient and son were instructed to get the Reli On brand or what ever is the cheapest for them over the counter and the Basaglar Kwik pen was sent to [facility] on [address] for pickle maker on Tuesday. Patient and son both verbalized understanding.
[2023-07-11 14:16] LABS: Anti-Double Strand DNA AB <1 IU/mL; Jo-1 Antibody <1.0 NEG AI (<1.0 NEG); SS-B/LA IGG <1.0 NEG AI (<1.0 NEG); Scleroderma Ab(Scl-70) Ab <1.0 NEG AI (<1.0 NEG); Ss-A/Ro Igg <1.0 NEG AI (<1.0 NEG)
[2023-07-11 17:04] LABS: E. Chaffeensis AB IGG <1:64; E. Chaffeensis AB IGM <1:20
[2023-07-12 15:05] LABS: ADAMTS 13 Activity 0.49 IU/mL (0.68-1.63)
[2023-07-12 21:34] LABS: RMSF IGG NOT DETECTED; RMSF IGM NOT DETECTED
[2023-07-13 20:38] LABS: Fibrinogen Degradation Product 40 mcg/mL (LESS THAN 5)
[2023-08-03 17:25] LABS: SM/RNP Antibodies <1.0 NEG
== END 2023-07-09 13:16 | disposition home or self-care (01) | DRG 948 ==
LOC: ER 15:10 → MEDSURG 15:21
PROVIDERS: Student in an Organized Health Care Education/Training Program; Admitting Provider Family Medicine; Emergency Provider Emergency Medicine; PCP Internal Medicine; Visit Provider Student in an Organized Health Care Education/Training Program
DX: R41.82 Altered mental status, unspecified (principal); E87.1 Hypo-osmolality and hyponatremia; R19.7 Diarrhea, unspecified; E86.0 Dehydration; D69.6 Thrombocytopenia, unspecified; D72.810 Lymphocytopenia; T14.8XXA Other injury of unspecified body region, initial encounter; Y99.9 Unspecified external cause status; I95.9 Hypotension, unspecified; E87.6 Hypokalemia; E78.5 Hyperlipidemia, unspecified; R74.01 Elevation of levels of liver transaminase levels; M06.9 Rheumatoid arthritis, unspecified; Z79.52 Long term (current) use of systemic steroids; Z79.82 Long term (current) use of aspirin; Z79.02 Long term (current) use of antithrombotics/antiplatelets; Z72.0 Tobacco use; K21.9 Gastro-esophageal reflux disease without esophagitis; I25.10 Atherosclerotic heart disease of native coronary artery without angina pectoris; I25.5 Ischemic cardiomyopathy; E09.65 Drug or chemical induced diabetes mellitus with hyperglycemia; T38.0X5A Adverse effect of glucocorticoids and synthetic analogues, initial encounter
CPT/HCPCS: 36415; 36416; 36600; 70450; 71045; 71275; 74176; 76700; 80053; 80061; 80306; 80307; 80503; 81001; 82140; 82533; 82607; 82746; 82803; 82962; 83010; 83036; 83540; 83550; 83605; 83615; 83690; 83721; 83735; 84100; 84145; 84443; 85007; 85025; 85362; 85378; 85384; 85397; 85610; 85730; 86140; 86225; 86235; 86403; 86618; 86666; 86705; 86706; 86709; 86757; 86803; 86880; 87040; 87340; 87486; 87581; 87633; 87798; 87806; 93005; 93306; 96361; 96372; 96374; 96376; 97161; 97530; 99285; C9113; G0378; J1815; J2310; J2543; J3475; J3480; J3490; J7030; J7512; Q9967

== ENCOUNTER → 2023-07-14 08:56 | Outpatient (BNVA) | payer SELFPAY | PROVIDERS: PCP Internal Medicine; Visit Provider Family Medicine | DX: R79.89 Other specified abnormal findings of blood chemistry (principal); Z09 Encounter for follow-up examination after completed treatment for conditions other than malignant neoplasm; R76.8 Other specified abnormal immunological findings in serum; I95.9 Hypotension, unspecified; D69.6 Thrombocytopenia, unspecified; W57.XXXA Bitten or stung by nonvenomous insect and other nonvenomous arthropods, initial encounter; R06.2 Wheezing | CPT/HCPCS: 80053; 85025 ==

== ENCOUNTER → 2023-08-17 10:59 | Outpatient (BNVA) | payer SELFPAY | PROVIDERS: PCP Internal Medicine; Visit Provider Family Medicine | DX: R79.89 Other specified abnormal findings of blood chemistry (principal); Z79.899 Other long term (current) drug therapy | CPT/HCPCS: 80053; 85025 ==

== ENCOUNTER → 2023-11-14 11:14 | Outpatient (BNVA) | payer OTHER, SELFPAY | PROVIDERS: PCP Family Medicine; Visit Provider Family Medicine | DX: I10 Essential (primary) hypertension (principal); E11.9 Type 2 diabetes mellitus without complications; D69.6 Thrombocytopenia, unspecified | CPT/HCPCS: 80053; 80061; 83036; 84439; 84443; 85025 ==

== ENCOUNTER 2024-07-03 06:00 | Outpatient (CLI) | payer OTHER, SELFPAY | END 2024-07-03 06:01 | disposition home or self-care (01) | LOC: LAB 07-04 08:07 | PROVIDERS: PCP Family Medicine; Visit Provider Family Medicine | DX: E11.9 Type 2 diabetes mellitus without complications (principal) | CPT/HCPCS: 80053; 83036 ==

== ENCOUNTER 2024-07-26 09:50 | Outpatient (CLI) | payer OTHER, SELFPAY ==
--- NOTE | 2024-07-26 10:00 | CT_ITS ---
WS: [id number] LDCT LUNG CANCER SCREENING HISTORY: screening TECHNIQUE: Axial imaging performed from the apices to 1 cm below the costophrenic angles. Coronal and sagittal reformats are submitted with axial MIP series. All CT scans at [facility] use at least one of these dose optimization techniques: automated exposure control; mA and/or kV adjustment per patient size (includes targeted exams where dose is matched to clinical indication); or iterative reconstruction. DLP: 48.11 mGy.cm DIvol: Mean CTDIvol: 0.90 (mGy) COMPARISON: 07/08/2023 Diagnostic quality: Satisfactory Lungs: Mild pulmonary hyperexpansion. Bilateral pleural nodules in the upper lung kay are less than 4 mm. No mass. No groundglass attenuation or endobronchial lesions. Heart: Normal size heart with no pericardial effusion.. Other findings: Moderate atherosclerotic plaque aorta. Small mediastinal and hilar lymph nodes. No adenopathy identified. RIGHT adrenal gland is not visualized. LEFT adrenal gland is negative. Mild thoracic spondylosis. CT/CT lung screening [id number] IMPRESSION: LUNG-RADS: 2-Benign Appearance or Behavior FOLLOW UP: 12 Month: Continue annual screening with LDCT OTHER FINDINGS (S MODIFIER): None.
--- NOTE | 2024-07-26 10:40 | MM_ITS ---
WS: [id number] BILATERAL SCREENING DIGITAL TOMOSYNTHESIS MAMMOGRAM WITH CAD HISTORY: screening COMPARISON: 09/26/2013, 02/13/2010 Bilateral CC and MLO views with tomosynthesis and synthetic mammography submitted. Computer aided detection analyzed. Breast composition: The breasts are heterogeneously dense, which may obscure small masses. No suspicious masses, microcalcifications or architectural distortion. Stable partially obscured masses and calcifications within each breast. There is a more focal ovoid 10 mm mass central to the RIGHT nipple which was also present in 2014. MM/MM scr tomosynthesis [id number] IMPRESSION: BI-RADS: 2 - Benign FOLLOW UP: 1 Year Follow-up
== END 2024-07-26 09:51 | disposition home or self-care (01) ==
PROVIDERS: PCP Family Medicine; Visit Provider Family Medicine
DX: Z12.31 Encounter for screening mammogram for malignant neoplasm of breast (principal); Z12.2 Encounter for screening for malignant neoplasm of respiratory organs; F17.219 Nicotine dependence, cigarettes, with unspecified nicotine-induced disorders; R92.333 Mammographic heterogeneous density, bilateral breasts; N64.89 Other specified disorders of breast; R92.1 Mammographic calcification found on diagnostic imaging of breast; N63.10 Unspecified lump in the right breast, unspecified quadrant; R91.8 Other nonspecific abnormal finding of lung field; I70.0 Atherosclerosis of aorta; R59.0 Localized enlarged lymph nodes; M47.894 Other spondylosis, thoracic region
CPT/HCPCS: 71271; 77063; 77067; 80053; 83036

== ENCOUNTER → 2024-12-03 11:37 | Outpatient (BNVA) | payer OTHER, SELFPAY | PROVIDERS: PCP Family Medicine; Visit Provider Family Medicine | DX: E11.9 Type 2 diabetes mellitus without complications (principal) | CPT/HCPCS: 80048; 83036 ==

== ENCOUNTER → 2025-01-21 13:13 | Outpatient (BNVA) | payer MEDICARE, SELFPAY | PROVIDERS: PCP Family Medicine; Visit Provider Dermatology | DX: C44.329 Squamous cell carcinoma of skin of other parts of face (principal) | CPT/HCPCS: 14041; 17311 ==